=== PATIENT | female | born 1950 | race American Indian/Alaskan Native ===

== ENCOUNTER 2017-03-04 06:59 | Day surgery (SDC) | payer MEDICARE ==
[2017-03-04 07:42] LABS: Hematocrit 37.6 % (30.3-42.9); Hemoglobin 12.2 gm/dl (10.1-14.3); Mean Corpuscular HGB Conc 32 % (30-34); Mean Corpuscular Hemoglobin 30 pg (28-32); Mean Corpuscular Volume 94 fl (79-97); Platelet Count 260 K/mm3 (140-440); Red Cell Distribution Width 13.9 % (13.2-15.2); White Blood Count 11.9 K/mm3 (4.5-11.0)
[2017-03-04 07:55] LABS: INR 1.02 (0.87-1.13)
[2017-03-04 08:02] LABS: Anion Gap 18 mmol/L; Blood Urea Nitrogen 18 mg/dL (7-17); Calcium 11.6 mg/dL (8.4-10.2); Carbon Dioxide 23 mmol/L (22-30); Chloride 99.7 mmol/L (98-107); Glucose 109 mg/dL (65-100); Potassium 4.1 mmol/L (3.6-5.0); Sodium 137 mmol/L (137-145)
[2017-03-04] MEDS ORDERED: HEPARIN/NS 5000 UNIT/500ML(CATH LAB) 1,000 ML IR ONE (08:13)
[2017-03-04] MEDS ORDERED: NITROGLYCERIN SYRINGE 3 ML ONE (08:14)
[2017-03-04] MEDS ORDERED: CALAN ONE (08:14)
[2017-03-04] MEDS ORDERED: XYLOCAINE 2% INFILTRATI ONE (08:14)
[2017-03-04] MEDS ORDERED: HEPARIN 10,000 UNITS/10 ML ONE (08:14)
[2017-03-04] MEDS ORDERED: SUBLIMAZE ONE (08:15)
[2017-03-04] MEDS: VERSED ONE ×2 (09:00→09:03)
[2017-03-04 09:49] LABS: Basophils % (Manual) 0 % (0.0-1.8); Blastocytes % (Manual) 0 %; Eosinophils % (Manual) 0 % (0.0-4.3)
[2017-03-04 09:50] LABS: Diff Status Complete; RBC Morphology Normal
[2017-03-04] MEDS ORDERED: LEXISCAN IV ONE (09:54)
[2017-03-04] MEDS ORDERED: NACL 0.9% 500 ML 500 ML IV SCH (10:00)
--- NOTE | 2017-03-04 10:20 | Cardiac Catherization Report ---
REFERRING PHYSICIAN: Jose Foster MD INDICATION FOR PROCEDURE: The patient is a pleasant 66-year-old -[place] female with multiple risk factors, recurrent chest pain, referred here for left heart catheterization. Risks, benefits, and potential alternatives explained at length prior to obtaining informed consent. PROCEDURE IN DETAIL: The patient was brought to catheterization lab in a postabsorptive state, prepped and draped in sterile fashion. Francisco J's test in right hand was normal. A 2 mL of 2% lidocaine anesthetize to the right wrist. A standard 6-Korean hydrophilic sheath used to cannulate the right radial artery via modified Seldinger technique. All exchanges performed to exchange a J-tip guidewire. JL3.5 catheter used to engage left main. No dampening or ventricularization. Cineangiography performed in all projections. JR4 catheter used to cross the aortic valve under fluoroscopy guidance. Left ventriculography performed in 30 AMBRIZ and 30 FAROESE projections via hand injections, catheter flushed. Manual pullback performed with continuous pressure monitoring. Catheter used to engage the right coronary. No dampening or ventricularization. Cineangiography performed in multiple projections. Next, catheter removed from the body of wire, sheath removed. Manual pressure used to achieve hemostasis. DATA: Aortic pressure is 135/60, LV pressure is 130, LVEDP of 22 mmHg. Left ventriculography revealed normal systolic performance with estimated ejection fraction of 55%-60%. No evidence of aortic stenosis. Normal LVEDP. CORONARY ANATOMY: This is a right dominant system. Left main is a moderate sized vessel with no significant disease, bifurcates left anterior descending and left circumflex. Left circumflex is a moderate sized vessel, courses AV groove. No significant disease. Left main without disease. LAD is a moderate sized vessel, courses anterior intergroove, wraps around the apex, tortuous. There is a moderate length segment of intramyocardial bridging in the mid LAD, no evidence of diastolic collapse, mild. No significant coronary artery disease noted. Right coronary is a moderate sized vessel, courses AV groove, distally bifurcates in the posterior and posterolateral branch. No discrete stenoses. RIGHT DOMINANT SYSTEM CONCLUSIONS: 1. No angiographic evidence of significant epicardial coronary artery disease in this right dominant system. 2. Mild mid LAD bridge without evidence of diastolic collapse. 3. Normal left ventricular systolic performance, estimated ejection fraction of 55%-60%. 4. No evidence of aortic stenosis. At this point, recommend medical management. The patient recurrent chest pain, we will also check V/Q scan. However, follow up with Dr. Foster. Results of procedure explained at length to the patient and family. All questions and concerns were addressed. Primary and secondary prevention measures were discussed. JOB# [id number] SBM/NTS
--- NOTE | 2017-03-04 10:51 | XRay Report ---
CHEST ONE VIEW INDICATION: Chest pain. History of asthma. COMPARISON: 11/08/2015. FINDINGS: Portable, single, frontal chest radiograph demonstrates normal cardiomediastinal silhouette. Clear lungs. Mild bony degenerative changes. Extrinsic EKG leads. CONCLUSION: No acute disease in the chest. Thank you for the opportunity to participate in this patient's care.
[2017-03-04 12:57] VITALS: BP 109/63
--- NOTE | 2017-03-04 13:00 | Nuclear Medicine Report ---
LUNG SCAN, VENTILATION AND PERFUSION: History: Chest pain. Findings: Inhalation of Xenon gas demonstrates a normal distribution of the activity throughout both lungs. The wash out phases show no focal retention of activity. After injection of Technetium 99m macroaggregated albumin gamma camera imaging of the lungs in multiple projections demonstrates normal pulmonary contours with a homogeneous distribution of activity. No focal areas of perfusion deficiency are identified. IMPRESSION: Normal study.
--- NOTE | 2017-03-04 15:19 | Short Stay Summary ---
Short Stay Documentation Date of service: 03/04/17 - History H&P: obtained from office - Allergies and Medications Current Medications: Allergies No Known Allergies Allergy (Verified 11/09/15 01:46) Home Medications Medication Instructions Recorded Confirmed Last Taken Type Albuterol Sulfate [Ventolin HFA] 2 puff IH Q4H PRN 11/04/15 03/04/17 03/04/17 07 :38 History Fluticasone [Flonase] 1 spray NS QDAY 11/04/15 03/04/17 03/04/17 07:40 History 324mg po Aspirin [Aspirin BABY CHEW TAB] 81 mg PO QDAY tab.chew 11/09/15 03/04/17 07:38 Rx Fexofenadine/Pseudoephedrine 1 each PO QDAY 11/09/15 03/04/17 11/09/15 History [Joyce-D 12 Hour Tablet] Ibuprofen [Motrin 200 MG tab] 200 mg PO Q6H PRN 11/09/15 12/29/15 11/09/15 History Naproxen 375 mg PO Q12H PRN 12/29/15 12/29/15 Unknown History traMADol 50 mg PO Q6H PRN 12/29/15 12/29/15 03/03/17 History amLODIPine [Norvasc] 5 mg PO DAILY 03/04/17 03/04/17 03/03/17 History - Brief post op/procedure progress note Date of procedure: 03/04/17 Pre-op diagnosis: chest pain Post-op diagnosis: same Procedure: LHC - see cath report Anesthesia: local Estimated blood loss: none Pathology: none Condition: stable - Disposition Condition at discharge: Good Disposition: DC-01 TO HOME OR SELFCARE - Discharge Diagnoses (1) Chest pain Status: Chronic Qualifiers: Chest pain type: C Ischemic chest pain type: I Short Stay Discharge Plan Activity: advance as tolerated Wound: open to air, keep clean and dry Additional Instructions: Follow up with Dr. Tolentino in 1-2 weeks. Call to make appt at [phone]. Follow up with: OSCAR RIOS MD [Primary Care Provider] - 7 Days JAMILAH TOLENTINO MD [Staff Physician] - 7 Days Forms: CardCath PCI D/C Instructions
== END 2017-03-04 13:45 | disposition home or self-care (01) ==
LOC: OPU 06:59
PROVIDERS: ATTEND Internal Medicine
DX: R07.89 Other chest pain (principal); J45.909 Unspecified asthma, uncomplicated; E66.9 Obesity, unspecified; Z68.27 Body mass index [BMI] 27.0-27.9, adult; Z90.710 Acquired absence of both cervix and uterus; Z79.899 Other long term (current) drug therapy; Z98.890 Other specified postprocedural states; Z84.1 Family history of disorders of kidney and ureter; Z82.49 Family history of ischemic heart disease and other diseases of the circulatory system; Z79.82 Long term (current) use of aspirin
CPT/HCPCS: 36415; 71010; 78582; 80048; 85007; 85025; 85610; 85730; 93005; 93010; 93458; A9540; A9558; C1894; J1644; J2250; J3010; J7040; Q9967

== ENCOUNTER 2017-04-15 19:38 | Emergency (ER) | payer MEDICARE ==
[2017-04-15] MEDS ORDERED: TYLENOL ONE (20:29)
[2017-04-15] MEDS ORDERED: TYLENOL PO ONE (20:32)
--- NOTE | 2017-04-16 02:59 | Emergency Department Report ---
HPI - General Chief Complaint: Pain General Time Seen by Provider: 04/16/17 02:39 - HPI HPI: Pt reports that she's been having pain for approximately 2 weeks. She says she is having pain to her upper back and her shoulder and also to both sides of her neck. She said she did not fall or any injury to the side she says she usually takes tramadol but she is out of her tramadol. She says she hasn't 0.0 with her primary care physician but is not for another couple weeks. She says she has chronic arthritis all over. Patient with history of arthritis, asthma, or heart attack [place], hypertension and sinusitis, chronic neck and back pain. Surgical history for hysterectomy, right knee surgery, gallbladder surgery and fibroids removed. Her pain is 3/10 and it's worst when she moves around. Says her pain is better when she takes Ultram. She describes her pain as a can. She denies any numbness or tingling to her extremities. Denies any chest pain or shortness of breath. ED Past Medical Hx - Past Medical History Previous Medical History?: Yes Hx Hypertension: Yes Hx Heart Attack/AMI: No Hx Arthritis: Yes Hx Asthma: Yes Additional medical history: SINUS. Chronic back/neck pain - Surgical History Past Surgical History?: Yes Hx Pacemaker: No Additional Surgical History: HYSTERERCTOMY, RIGHT KNEE SURGERY, GALL STONE REMOVED, FIRBROIDS REMOVED. - Family History Family history: hypertension - Social History Smoking Status: Never Smoker Substance Use Type: None Other Social History: single - Medications Home Medications: Home Medications Medication Instructions Recorded Confirmed Last Taken Type Albuterol Sulfate [Ventolin HFA] 2 puff IH Q4H PRN 11/04/15 03/04/17 03/04/17 07 :38 History Fluticasone [Flonase] 1 spray NS QDAY 11/04/15 03/04/17 03/04/17 07:40 History 324mg po Aspirin [Aspirin BABY CHEW TAB] 81 mg PO QDAY tab.chew 11/09/15 03/04/17 07:38 Rx Fexofenadine/Pseudoephedrine 1 each PO QDAY 11/09/15 03/04/17 11/09/15 History [Joyce-D 12 Hour Tablet] amLODIPine [Norvasc] 5 mg PO DAILY 03/04/17 03/04/17 03/03/17 History Acetaminophen/Codeine [Tylenol 1 tab PO Q6H PRN #6 tab 04/16/17 Unknown Rx /Codeine # 3 tab] traMADol [Ultram] 50 mg PO Q6HR PRN #12 tablet 04/16/17 Unknown Rx ED Review of Systems ROS: Stated complaint: BACK OF HEAD/BACK/NECK PAINS Other details as noted in HPI Comment: All other systems reviewed and negative Constitutional: denies: chills, fever Eyes: denies: eye pain, vision change ENT: denies: throat pain, congestion Respiratory: denies: cough, orthopnea, shortness of breath, SOB with exertion, SOB at rest, stridor, wheezing Cardiovascular: denies: chest pain, palpitations, edema, syncope Gastrointestinal: denies: abdominal pain, nausea, vomiting, constipation Genitourinary: denies: urgency, dysuria, frequency, hematuria, discharge Musculoskeletal: back pain, arthralgia, myalgia. denies: joint swelling Skin: denies: rash Neurological: denies: headache, weakness, numbness, paresthesias, confusion, abnormal gait, vertigo Physical Exam - Physical Exam Vital Signs: Vital Signs 04/15/17 20:25 Temperature 98.1 F Pulse Rate 103 H Respiratory 16 Rate Blood Pressure 125/74 [Right] O2 Sat by Pulse 98 Oximetry Vital Signs 04/15/17 04/16/17 20:25 03:53 Temperature 98.1 F Pulse Rate 103 H 82 Respiratory 16 Rate Blood Pressure 125/74 [Right] O2 Sat by Pulse 98 Oximetry General: This is a 67-year-old female well-nourished well-developed in no acute distress Physical Exam: Head: Normocephalic, atraumatic. No abrasions, laceration or contusion Neck: Supple, no adenopathy. Full range of motion. No C-spine tenderness. No muscular tenderness Mouth: Moist, no pharyngeal exudate or erythema. Uvula is midline and oral airways patent. Tongue is normal. No trismus. No peritonsillar abscess. CV:S1, S2 regular rate and rhythm Lungs: Clear to auscultate bilaterally Normal work of breathing and no use of accessory muscles. Abdomen: Nontender the palpation in all quadrants, no guarding or rebound tenderness. No CVA tenderness and normal bowel sounds in all quadrants. Extremity: No clubbing, cyanosis or edema. +2 pulses in all extremities. No neurovascular compromise. Capillary refill is less than 3 seconds. Good color , sensation, movement and temperature in all extremities. Able to ambulate without any difficulties. MSK: Full Range of motion to all extremities, no joint crepitus, deformity, erythema, swelling. No signs of tendon or ligament injury. +5/5 strength in all extremities Skin: Clean dry and intact, no rash or lesions. PSYCH: Normal mood and behavior. Neurological: GCS of 15, speech is clear and fluid, alert and oriented 3. Normal gait, negative Romberg and negative pronator drift. No motor or sensory deficit. No focal neurological deficit. Back: No vertebral tenderness, no paraspinal tenderness, no saddle anesthesia,. Patient able to relate without any difficulties. ED Course Vital Signs 04/15/17 20:25 Temperature 98.1 F Pulse Rate 103 H Respiratory 16 Rate Blood Pressure 125/74 [Right] O2 Sat by Pulse 98 Oximetry Vital Signs 04/15/17 04/16/17 20:25 03:53 Temperature 98.1 F Pulse Rate 103 H 82 Respiratory 16 Rate Blood Pressure 125/74 [Right] O2 Sat by Pulse 98 Oximetry - Reevaluation(s) Reevaluation #1: 04/16/17 04:01 Patient stable throughout ED course. She received Tylenol 650 mg in triage area 04/16/17 04:01 ED Medical Decision Making - Medical Decision Making MDM: Assessment/plan ED course: Patient here reports that she has neck, upper back and shoulder pain that has been ongoing and reports that she has chronic arthritis and she gets pain from time to time. She said her doctor wrote for Ultram for her and she is out of her Ultram. She brought the empty bottle of Ultram and asked if she can get a refill and get something stronger because the Ultram doesn't take her pain away. Patient has multiple co-morbidities and on medication. She does see a primary care on a regular basis and says she has an appointment coming up soon. I discussed the patient that I'll give her a refill for Ultram and I'll give her 6 Tylenol 3 but she will need to to manage her chronic pain and other medical problem. She voiced understanding and discharged home in stable condition. Diagnostic/labs:No Need for diagnostics or lab tests. Diagnosis: Arthralgia multiple sites, chronic pain, upper back pain. Medication refill Medication: Patient given Tylenol 650 mg at emergency room for pain which alleviated her pain down to the toilet at 10. He was given prescription for Tylenol 3 and Ultram. Discussed the patient that she needs to follow up with her primary care physician to call and schedule an appointment. She does have an appointment for April 28 I told her to call and see if she can get an earlier appointment. Zack agrees and discharged home in stable condition. Critical care attestation.: If time is entered above; I have spent that time in minutes in the direct care of this critically ill patient, excluding procedure time. ED Disposition Clinical Impression: Arthralgia of multiple sites, bilateral, Encounter for medication refill, Upper back pain Chronic pain Qualifiers: Chronic pain type: chronic pain syndrome Qualified Code(s): G89.4 - Chronic pain syndrome Disposition: - TO HOME OR SELFCARE Is pt being admited?: No Does the pt Need Aspirin: No Condition: Stable Instructions: Back Pain (ED), Arthralgia (ED) Additional Instructions: Please follow-up with your primary care physician call tomorrow to schedule an early appointment Donot take Ultram or Tylenol No. 3 while driving or operating heavy machinery as this medication can cause drowsiness Prescriptions: Acetaminophen/Codeine [Tylenol /Codeine # 3 tab] 1 tab PO Q6H PRN #6 tab PRN Reason: Pain traMADol [Ultram] 50 mg PO Q6HR PRN #12 tablet PRN Reason: Pain Referrals: OSCAR RIOS MD [Primary Care Provider] - 04/17/17
[2017-04-16] MEDS ORDERED: MOTRIN ONE (04:20)
[2017-04-16] MEDS ORDERED: MOTRIN PO ONE (04:27)
[2017-04-16 04:30] VITALS: BP 146/88
== END 2017-04-16 04:29 | disposition home or self-care (01) ==
LOC: ED 19:38
DX: M54.2 Cervicalgia (principal); M54.6 Pain in thoracic spine; M25.511 Pain in right shoulder; M25.512 Pain in left shoulder; G89.4 Chronic pain syndrome; I10 Essential (primary) hypertension; J45.909 Unspecified asthma, uncomplicated; M19.90 Unspecified osteoarthritis, unspecified site; Z90.710 Acquired absence of both cervix and uterus; Z79.82 Long term (current) use of aspirin
CPT/HCPCS: 99282

== ENCOUNTER 2019-04-02 18:01 | Inpatient (IN) | payer MEDICARE ==
--- NOTE | 2019-04-02 18:16 | Event Note ---
ED Screening Note Date of service: 04/02/19 Time: 18:13 ED Screening Note: 69 y/o female comes in for chest pain and sob and leg pain times couple of weeks. Changes on her EKG This initial assessment/diagnostic orders/clinical plan/treatment(s) is/are subject to change based on patients health status, clinical progression and re- assessment by fellow clinical providers in the ED. Further treatment and workup at subsequent clinical providers discretion. Patient/guardian urged not to elope from the ED as their condition may be serious if not clinically assessed and managed. Initial orders include:
--- NOTE | 2019-04-02 19:04 | Emergency Department Report ---
ED Chest Pain HPI - General Chief Complaint: Weakness Stated Complaint: SOB/CHEST PAIN Time Seen by Provider: 04/02/19 18:59 Source: patient Mode of arrival: Ambulatory Limitations: No Limitations - History of Present Illness Initial Comments: Patient is a 69-year-old female presents to emergency room with complaints of shortness of breath, leg weakness, dizziness and chest pain 3 days. Patient states her chest pain is a 5 out of 10. Patient states her symptoms are better with rest and worse with exertion. Patient denies blurry vision. Patient denies headache. Patient states the chest pain is in her substernal region. Patient also complaining of weight loss and decreased appetite MD Complaint: chest pain -: Sudden Onset: during rest Pain Location: substernal, left chest Pain Radiation: none Severity: moderate Severity scale (0 -10): 5 Quality: sharp Consistency: constant Improves With: rest Worsens With: exertion re: dyspnea. denies: nausea, vomting, diaphoresis, sense of impending doom Other Symptoms: denies: cough, fever, syncope, rash, acid taste in mouth, leg swelling, palpitations, burping Treatments Prior to Arrival: none Aspirin use within the Past 7 Days: (1) Yes - Related Data On Oral Contraceptives: No Home Medications Medication Instructions Recorded Confirmed Last Taken Albuterol Sulfate [Ventolin HFA] 2 puff IH Q4H PRN 11/04/15 03/04/17 03/04/17 07:38 Fluticasone [Flonase] 1 spray NS QDAY 11/04/15 03/04/17 03/04/17 07:40 324mg po Fexofenadine/Pseudoephedrine 1 each PO QDAY 11/09/15 03/04/17 11/09/15 [Joyce-D 12 Hour Tablet] amLODIPine [Norvasc] 5 mg PO DAILY 03/04/17 03/04/17 03/03/17 Previous Rx's Medication Instructions Recorded Last Taken Type Aspirin [Aspirin BABY CHEW TAB] 81 mg PO QDAY tab.chew 11/09/15 03/04/17 07:38 Rx Acetaminophen/Codeine [Tylenol 1 tab PO Q6H PRN #6 tab 04/16/17 Unknown Rx /Codeine # 3 tab] traMADol [Ultram] 50 mg PO Q6HR PRN #12 tablet 04/16/17 Unknown Rx Allergies Allergy/AdvReac Type Severity Reaction Status Date / Time No Known Allergies Allergy Verified 11/09/15 01:46 Heart Score - HEART Score History: Slightly suspicious EKG: Non-specific Age: > 65 Risk factors: No known risk factors Troponin: < normal limit HEART Score: 3 ED Review of Systems ROS: Stated complaint: SOB/CHEST PAIN Other details as noted in HPI Constitutional: weakness. denies: chills, fever Eyes: denies: eye pain, eye discharge, vision change ENT: denies: ear pain, throat pain Respiratory: shortness of breath. denies: cough, wheezing Cardiovascular: chest pain. denies: palpitations Endocrine: no symptoms reported Gastrointestinal: denies: abdominal pain, nausea, diarrhea Genitourinary: denies: urgency, dysuria, discharge Musculoskeletal: denies: back pain, joint swelling, arthralgia Skin: denies: rash, lesions Neurological: weakness, vertigo. denies: headache, paresthesias Psychiatric: denies: anxiety, depression Hematological/Lymphatic: denies: easy bleeding, easy bruising ED Past Medical Hx - Past Medical History Previous Medical History?: Yes Hx Hypertension: Yes Hx Heart Attack/AMI: No Hx Arthritis: Yes Hx Asthma: Yes Additional medical history: SINUS. Chronic back/neck pain - Surgical History Past Surgical History?: Yes Hx Pacemaker: No Additional Surgical History: HYSTERERCTOMY, RIGHT KNEE SURGERY, GALL STONE REMOVED, FIRBROIDS REMOVED. - Family History Family history: no significant - Social History Smoking Status: Never Smoker Substance Use Type: None - Medications Home Medications: Home Medications Medication Instructions Recorded Confirmed Last Taken Type Albuterol Sulfate [Ventolin HFA] 2 puff IH Q4H PRN 11/04/15 03/04/17 03/04/17 07:38 History Fluticasone [Flonase] 1 spray NS QDAY 11/04/15 03/04/17 03/04/17 07:40 History 324mg po Aspirin [Aspirin BABY CHEW TAB] 81 mg PO QDAY tab.chew 11/09/15 03/04/17 03/04/17 07:38 Rx Fexofenadine/Pseudoephedrine 1 each PO QDAY 11/09/15 03/04/17 11/09/15 History [Joyce-D 12 Hour Tablet] amLODIPine [Norvasc] 5 mg PO DAILY 03/04/17 03/04/17 03/03/17 History Acetaminophen/Codeine [Tylenol 1 tab PO Q6H PRN #6 tab 04/16/17 Unknown Rx /Codeine # 3 tab] traMADol [Ultram] 50 mg PO Q6HR PRN #12 tablet 04/16/17 Unknown Rx ED Physical Exam - General Limitations: No Limitations General appearance: alert, in no apparent distress - Head Head exam: Present: atraumatic, normocephalic - Eye Eye exam: Present: normal appearance - ENT ENT exam: Present: mucous membranes moist - Neck Neck exam: Present: normal inspection - Respiratory Respiratory exam: Present: normal lung sounds bilaterally. Absent: respiratory distress, wheezes, rales - Cardiovascular Cardiovascular Exam: Present: regular rate, normal rhythm. Absent: systolic mu rmur, diastolic murmur, rubs, gallop - GI/Abdominal GI/Abdominal exam: Present: soft, normal bowel sounds. Absent: distended, tenderness, guarding - Rectal Rectal exam: Present: deferred - Extremities Exam Extremities exam: Present: normal inspection - Back Exam Back exam: Present: normal inspection - Neurological Exam Neurological exam: Present: alert, oriented X3 - Psychiatric Psychiatric exam: Present: normal affect, normal mood - Skin Skin exam: Present: warm, dry, intact, normal color. Absent: rash ED Course Vital Signs 04/02/19 04/02/19 04/02/19 18:13 18:54 19:01 Temperature 97.5 F L Pulse Rate 109 H 107 H 106 H Respiratory 22 25 H 15 Rate Blood Pressure 98/70 109/74 O2 Sat by Pulse 100 Oximetry 04/02/19 04/02/19 04/02/19 19:15 19:16 19:30 Temperature Pulse Rate 107 H Respiratory 20 18 Rate Blood Pressure 97/71 102/69 O2 Sat by Pulse Oximetry 04/02/19 04/02/19 04/02/19 19:46 20:16 20:30 Temperature Pulse Rate Respiratory Rate Blood Pressure 120/81 117/83 117/89 O2 Sat by Pulse Oximetry 04/02/19 04/02/19 20:45 21:00 Temperature Pulse Rate Respiratory Rate Blood Pressure 110/82 129/72 O2 Sat by Pulse Oximetry - Reevaluation(s) Reevaluation #1: Discussed all results with patient. Patient will be admitted to the hospitalist service. Patient agrees to plan of care. 04/02/19 20:26 - Consultations Consultation #1: Hospitalist consulted for admission. Hospitalist to admit patient. Hospitalist to assume care patient. 04/02/19 20:26 Consultation #2: Hematology page 04/02/19 20:28 Dr. Barrera recommends a peripheral smear by pathologist and LDH and uric acid and phosphorus and magnesium level 04/02/19 20:40 YOVANNY score - Yovanny Score Age > 65: (1) Yes Aspirin use within the Past 7 Days: (1) Yes 3 or more CAD Risk Factors: (0) No 2 or more Angina events in past 24 hrs: (1) Yes Known CAD with more than 50% Stenosis: (0) No Elevated Cardiac Markers: (0) No ST Deviation Greater than 0.5mm: (0) No YOVANNY Score: 3 ED Medical Decision Making - Lab Data Result diagrams: 04/02/19 19:03 04/02/19 19:03 - EKG Data -: EKG Interpreted by [facility] EKG shows normal: sinus rhythm, axis, intervals, QRS complexes, ST-T waves Rate: tachycardia - Radiology Data Radiology results: report reviewed, image reviewed CHEST 2 VIEWS 1642 INDICATION / CLINICAL INFORMATION: chest pain, sob. COMPARISON: None available. FINDINGS: SUPPORT DEVICES: None. HEART / MEDIASTINUM: No significant abnormality. LUNGS / PLEURA: No significant pulmonary or pleural abnormality. No pneumothorax . ADDITIONAL FINDINGS: No significant additional findings. IMPRESSION: No significant acute abnormality CT head without contrast INDICATION : Headache with dizziness. TECHNIQUE: Axial imaging performed from the skull apex through the skull base without the use of contrast. All CT examinations performed at this facility utilize dose modulation, iterative reconstruction or weight-based dosing, when appropriate, to reduce radiation dose to as low as reasonably achievable. COMPARISON: None FINDINGS: No acute intracranial hemorrhage or parenchymal abnormality. Ventricles are normal in size and appear symmetric. Soft tissues including the orbits appear normal. No acute osseous abnormality. Sinuses and mastoid air cells are clear. IMPRESSION: No acute abnormality. - Medical Decision Making Patient is a 69-year-old female presents to emergency room with chest pain, shortness of breath, dizziness and weakness. Patient found to have acute renal failure and leukemia. Patient also complains of weight loss loss of appetite. Patient admitted to the hospital service. Patient's head CT negative. Patient's chest x-ray negative. Hematology consult as well. - Differential Diagnosis chest pain. Shortness of breath. Dizziness. Weakness. ACS Critical Care Time: Yes Critical care attestation.: If time is entered above; I have spent that time in minutes in the direct care of this critically ill patient, excluding procedure time. Critical Care Time: 45 minutes ED Disposition Clinical Impression: SOB (shortness of breath), Weakness, Dizziness Chest pain Qualifiers: Chest pain type: unspecified Qualified Code(s): R07.9 - Chest pain, unspecified Elevated white blood cell count, unspecified Qualifiers: Leukocytosis type: unspecified Qualified Code(s): D72.829 - Elevated white blood cell count, unspecified Renal failure Qualifiers: Renal failure chronicity: acute Acute renal failure type: unspecified Qualified Code(s): N17.9 - Acute kidney failure, unspecified Leukemia Qualifiers: Leukemia type: unspecified Leukemia Active/Remission status: without remission Qualified Code(s): C95.90 - Leukemia, unspecified not having achieved remission Disposition: OP ADMIT IP TO THIS HOSP Is pt being admited?: Yes Does the pt Need Aspirin: No Condition: Critical Time of Disposition: 20:41
--- NOTE | 2019-04-02 19:11 | XRay Report ---
CHEST 2 VIEWS 1642 INDICATION / CLINICAL INFORMATION: chest pain, sob. COMPARISON: None available. FINDINGS: SUPPORT DEVICES: None. HEART / MEDIASTINUM: No significant abnormality. LUNGS / PLEURA: No significant pulmonary or pleural abnormality. No pneumothorax. ADDITIONAL FINDINGS: No significant additional findings. IMPRESSION: No significant acute abnormality Signer Name: Yeyo Pandey MD Signed: 04/02/2019 7:07 PM Workstation Name: [id number]
[2019-04-02 19:17] LABS: Hematocrit 37.4 % (30.3-42.9); Mean Corpuscular HGB Conc 32 % (30-34); Mean Corpuscular Volume 99 fl (79-97); Platelet Count 229 K/mm3 (140-440); Red Blood Count 3.79 M/mm3 (3.65-5.03); Red Cell Distribution Width 15.3 % (13.2-15.2)
[2019-04-02 19:47] LABS: Alanine Aminotransferase 10 units/L (7-56); Albumin 5.1 g/dL (3.9-5); BUN/Creatinine Ratio 21; Blood Urea Nitrogen 62 mg/dL (7-17); Calcium 11.7 mg/dL (8.4-10.2); Hemolysis Index 23
--- NOTE | 2019-04-02 20:26 | Cat Scan Report ---
CT head without contrast INDICATION : Headache with dizziness. TECHNIQUE: Axial imaging performed from the skull apex through the skull base without the use of con trast. All CT examinations performed at this facility utilize dose modulation, iterative reconstruct ion or weight-based dosing, when appropriate, to reduce radiation dose to as low as reasonably achiev able. COMPARISON: None FINDINGS: No acute intracranial hemorrhage or parenchymal abnormality. Ventricles are normal in si ze and appear symmetric. Soft tissues including the orbits appear normal. No acute osseous abnorm ality. Sinuses and mastoid air cells are clear. IMPRESSION: No acute abnormality. Signer Name: Gus Boudreaux MD Signed: 04/02/2019 8:21 PM Workstation Name: [id number]
--- NOTE | 2019-04-02 20:36 | History and Physical Report ---
History of Present Illness Chief complaint: Im tired, and i dont feel good History of present illness: 69 YO Female with HTN, Malnutrition, OA, Asthma, Lumbar Pain presents to ED for evaluation. PT states that she has experienced shortness of breath, generalized weakness, and chest discomfort over the past 2 weeks, with worsening symptoms over the past 3 days. Pt acknowledges decreased oral intake, early satiety, 25 lbs unintentional weight loss, night sweats, chest discomfort, and decreased exercise tolerance. Pt transported to [facility] via private vehicle. Pt seen and evaluated in ED and found to have symptoms consistent with CLL, as well as ARF, Acidosis, Severe Malnutrution, and Hyponatremia. Hematology consulted in ED. Nephrology consulted in ED. Pt admitted to [facility] unit and initiated on IVF resuscitation therapy. Prior admission on 11/09/15 reviewed. All listed medication reconciled at time of admission. PCP: Dr. Tyron Sung Past History Past Medical History: arthritis, hypertension, other (Malnutrition, Asthma) Past Surgical History: cholecystectomy, thyroidectomy, hysterectomy Social history: . denies: smoking, alcohol abuse, prescription drug abuse Family history: hypertension Medications and Allergies Allergies Allergy/AdvReac Type Severity Reaction Status Date / Time No Known Allergies Allergy Verified 11/09/15 01:46 Home Medications Medication Instructions Recorded Confirmed Last Taken Type Albuterol Sulfate [Ventolin HFA] 2 puff IH Q4H PRN 11/04/15 04/03/19 04/02/19 09:00 History 2puffs Fluticasone [Flonase] 1 spray NS QDAY 11/04/15 04/03/19 04/02/19 10:00 History 1 spray Aspirin [Aspirin BABY CHEW TAB] 81 mg PO QDAY tab.chew 11/09/15 04/03/19 03/31/19 09:00 Rx 81mg Fexofenadine/Pseudoephedrine 1 each PO QDAY 11/09/15 04/03/19 03/31/19 09:00 History [Joyce-D 12 Hour Tablet] 1 amLODIPine [Norvasc] 5 mg PO DAILY 03/04/17 04/03/19 03/31/19 09:00 History 5mg Acetaminophen/Codeine [Tylenol 1 tab PO Q6H PRN #6 tab 04/16/17 04/03/19 03/21/19 09:00 Rx /Codeine # 3 tab] 1 tab traMADol [Ultram] 50 mg PO Q6HR PRN #12 tablet 04/16/17 04/03/19 03/31/19 18:00 Rx 50mg Review of Systems Constitutional: weight loss, night sweats, no weight gain Ears, nose, mouth and throat: no ear pain, no ear discharge, no tinnitis, no decreased hearing, no nose pain, no nasal congestion Breasts: no change in shape, no swelling, no mass Cardiovascular: shortness of breath, dyspnea on exertion, decreased exercise tolerance, no chest pain Respiratory: no cough, no cough with sputum, no excessive sputum, no hemoptysis Gastrointestinal: loss of appetite, early satiety, no nausea, no vomiting, no diarrhea, no change in bowel habits Genitourinary Female: no pelvic pain, no flank pain, no menorrhagia, no dysuria, no urinary frequency Rectal: no pain, no incontinence, no bleeding Musculoskeletal: no neck stiffness, no neck pain, no shooting arm pain, no arm numbness/tingling, no low back pain Integumentary: no rash, no pruritis, no sores, no wounds, no jaundice Neurological: no head injury, no weakness, no parathesias, no tingling, no seizures, no syncope Psychiatric: no anxiety, no memory loss, no change in sleep habits, no sleep disturbances, no insomnia, no change in libido Endocrine: no cold intolerance, no heat intolerance, no polyphagia, no excessive thirst, no polydipsia, no polyuria Hematologic/Lymphatic: no easy bruising, no easy bleeding Allergic/Immunologic: no urticaria, no allergic rhinitis, no wheezing Exam - Constitutional Vitals: Temp Pulse Resp BP Pulse Ox 97.5 F L 107 H 18 97/71 100 04/02/19 18:13 04/02/19 19:15 04/02/19 19:16 04/02/19 19:15 04/02/19 18:13 General appearance: Present: mild distress, cachectic - EENT Eyes: Present: PERRL ENT: hearing intact, clear oral mucosa - Neck Neck: Present: supple, normal ROM - Respiratory Respiratory effort: normal Respiratory: bilateral: CTA - Cardiovascular Heart Sounds: Present: S1 & S2. Absent: rub, click - Extremities Extremities: pulses symmetrical, No edema Peripheral Pulses: within normal limits - Abdominal General gastrointestinal: Present: soft, non-tender, non-distended, normal bowel sounds Female genitourinary: Present: normal - Integumentary Integumentary: Present: clear, warm, dry - Musculoskeletal Musculoskeletal: generalized weakness - Psychiatric Psychiatric: appropriate mood/affect, intact judgment & insight - Neurologic Neurologic: CNII-XII intact, moves all extremities Results - Labs CBC & Chem 7: 04/02/19 19:03 04/02/19 19:03 Labs: Abnormal lab results 04/02/19 04/02/19 Range/Units 19:03 19:03 WBC 66.4 H* (4.5-11.0) K/mm3 MCV 99 H (79-97) fl RDW 15.3 H (13.2-15.2) % Sodium 132 L (137-145) mmol/L Chloride 91.9 L (98-107) mmol/L Carbon Dioxide 19 L (22-30) mmol/L BUN 62 H (7-17) mg/dL Creatinine 3.0 H (0.7-1.2) mg/dL Glucose 141 H (65-100) mg/dL Calcium 11.7 H (8.4-10.2) mg/dL Total Protein 8.6 H (6.3-8.2) g/dL Albumin 5.1 H (3.9-5) g/dL Assessment and Plan - Patient Problems (1) ARF (acute renal failure) with tubular necrosis Current Visit: Yes Status: Acute Plan to address problem: IVF resuscitation therapy, urine electrolytes, monitor uop q shift, Nephrology consulted in ED, renal ultrasound, monitor serum creatnine. (2) CLL (chronic lymphocytic leukemia) Current Visit: Yes Status: Acute Plan to address problem: Hematology consulted by ED, Dr. Castañeda is available by telephone if questions regarding patient stats, IVF resuscitation therapy, CT Chess to evaluate for adenopathy, LDH, Phosphorous level, magnesium, Peripheral smear sent to pathology for evaluation, (3) Severe malnutrition Current Visit: Yes Status: Acute Plan to address problem: Encourage increased protein intake, dietary supplementation, diet as tolerated (4) Acidosis Current Visit: Yes Status: Acute Plan to address problem: IVF resuscitation therapy, repeat bmp in AM. (5) Hyponatremia syndrome Current Visit: Yes Status: Acute Plan to address problem: IVF resuscitation therapy, repeat bmp (6) DVT prophylaxis Current Visit: Yes Status: Acute Plan to address problem: SCD to BLE while in bed. Pt ambulatory
[2019-04-02] MEDS ORDERED: TYLENOL PO PRN (20:40)
[2019-04-02] MEDS ORDERED: SODIUM CHLORIDE FLUSH SYRINGE 10 ML IV PRN (20:40)
[2019-04-02] MEDS ORDERED: ZOFRAN IV PRN (20:40)
[2019-04-02] MEDS ORDERED: PROVENTIL IH PRN (20:40)
[2019-04-02] MEDS ORDERED: PROAIR IH PRN (20:46)
[2019-04-02] MEDS ORDERED: NACL 0.45% 1000 ML 1,000 ML IV SCH (21:00)
[2019-04-02 21:35] LABS: Uric Acid 17.4 mg/dL (3.5-7.6)
--- NOTE | 2019-04-02 21:48 | Cat Scan Report ---
CT CHEST WITHOUT CONTRAST INDICATION / CLINICAL INFORMATION: Dyspnea with leukemia. TECHNIQUE: Axial CT images were obtained through the chest without contrast. All CT scans at this location are p erformed using CT dose reduction for ALARA by means of automated exposure control. COMPARISON: None available. FINDINGS: HEART: No significant abnormality. THORACIC AORTA: No significant abnormality. MEDIASTINUM and JOSSE: No significant abnormality. LUNGS: No acute air space or interstitial disease. PLEURA: No significant pleural effusion. No pneumothorax. ADDITIONAL FINDINGS: Severe bilateral axillary adenopathy. The largest node measures about 2 cm in sh ort axis within the left axilla.. UPPER ABDOMEN: Severe adenopathy throughout much of the upper retroperitoneum and upper mesentery.. SKELETAL SYSTEM: No significant abnormality. IMPRESSION: Severe axillary and upper abdominal adenopathy consistent with patient's known leukemia. No acute fin dings identified within the lungs. Signer Name: Gus Boudreaux MD Signed: 04/02/2019 9:44 PM Workstation Name: [id number]
[2019-04-02 21:51] LABS: Anisocytosis 1+; Band Neutrophils # (Manual) 0.7 K/mm3; Basophils % (Manual) 0 % (0.0-1.8); Eosinophils % (Manual) 0.5 % (0.0-4.3); Myelocytes # (Manual) 0.3 K/mm3; Total Cells Counted 200
[2019-04-02 21:52] LABS: Ovalocytes Few; Poikilocytosis Few
[2019-04-02 21:53] LABS: Tear Drop Cells Few
[2019-04-02 21:59] LABS: Platelet Estimate Consistent w Auto; Smudge Cells 2+
[2019-04-02] MEDS: SODIUM CHLORIDE FLUSH SYRINGE 10 ML IV SCH (22:27)
--- NOTE | 2019-04-03 07:53 | Progress Note ---
Assessment and Plan Assessment and plan: 69 YO Female with HTN, Malnutrition, OA, Asthma, Lumbar Pain presents to ED for evaluation. PT states that she has experienced shortness of breath, generalized weakness, and chest discomfort over the past 2 weeks, with worsening symptoms over the past 3 days. Pt acknowledges decreased oral intake, early satiety, 25lbs unintentional weight loss, night sweats, chest discomfort, and decreased exercise tolerance. Pt transported to [facility] via private vehicle. Pt seen and evaluated in ED and found to have symptoms consistent with CLL, as well as ARF, Acidosis, Severe Malnutrution, and Hyponatremia. Hematology consulted in ED. Nephrology consulted in ED. Pt admitted to [facility] unit and initiated on IVF resusc itation therapy. Prior admission on 11/09/15 reviewed. All listed medication reconciled at time of admission. PCP: Dr. Tyron Sung CT Chest: With severe adenopathy throughout much of the upper abdominal axillary area consistent with leukemia (1) ARF (acute renal failure) with tubular necrosis IVF resuscitation therapy, urine electrolytes, monitor uop q shift, Nephrology consulted in ED, renal ultrasound, monitor serum creatinine. (2) CLL (chronic lymphocytic leukemia) Current Visit: Yes Status: Acute Plan to address problem: Hematology consulted by ED, Dr. Castañeda is available by telephone if questions regarding patient stats, IVF resuscitation therapy, LDH, Phosphorous level, magnesium, Peripheral smear sent to pathology for evaluation, Continue of follow-up of other results. Diagnoses discussed with patient. (3) Severe malnutrition Current Visit: Yes Status: Acute Plan to address problem: Encourage increased protein intake, dietary supplementation, diet as tolerated (4) A metabolic acidosis Current Visit: Yes Status: Acute Plan to address problem: IVF resuscitation therapy, repeat bmp in AM. (5) Hyponatremia syndrome Current Visit: Yes Status: Acute Plan to address problem: IVF resuscitation therapy, repeat bmp (6) DVT prophylaxis Current Visit: Yes Status: Acute Plan to address problem: SCD to BLE while in bed. Pt ambulatory History Interval history: Patient seen and examined this morning reports feeling of hunger otherwise continues to complain of lethargy but improved today. Hospitalist Physical - Physical exam Narrative exam: VITAL SIGNS: Reviewed. GENERAL: The patient appeared cachectic, ill-appearing., Vital signs as documented. HEAD: No signs of head trauma. Marked temporal wasting EYES: Pupils are equal. Extraocular motions intact. EARS: Hearing grossly intact. MOUTH: Oropharynx is normal. NECK: No adenopathy, no JVD. CHEST: Chest with clear breath sounds bilaterally. No wheezes, rales, or rhonchi. CARDIAC: Regular rate and rhythm. S1 and S2, without murmurs, gallops, or rubs. VASCULAR: No Edema. Peripheral pulses normal and equal in all extremities. ABDOMEN: Soft, non tender and non distended. No rebound or guarding, and no masses palpated. Bowel Sounds normal. MUSCULOSKELETAL: Good range of motion of all major joints. Extremities without clubbing, cyanosis or edema. NEUROLOGIC EXAM: Alert and oriented x 3 No focal sensory or strength deficits. Speech normal. Follows commands. PSYCHIATRIC: Mood normal. SKIN: detail exam as documented in skin assessment - Constitutional Vitals: Temp Pulse Resp BP Pulse Ox 98.1 F 99 H 16 99/64 100 04/03/19 03:03 04/03/19 03:03 04/03/19 03:03 04/03/19 03:03 04/03/19 03:03 General appearance: Present: mild distress, cachectic Results - Labs CBC & Chem 7: 04/02/19 19:03 04/02/19 19:03 Labs: Laboratory Last Values WBC 66.4 K/mm3 (4.5-11.0) H* 04/02/19 19:03 RBC 3.79 M/mm3 (3.65-5.03) 04/02/19 19:03 Hgb 12.0 gm/dl (10.1-14.3) 04/02/19 19:03 Hct 37.4 % (30.3-42.9) 04/02/19 19:03 MCV 99 fl (79-97) H 04/02/19 19:03 MCH 32 pg (28-32) 04/02/19 19:03 MCHC 32 % (30-34) 04/02/19 19:03 RDW 15.3 % (13.2-15.2) H 04/02/19 19:03 Plt Count 229 K/mm3 (140-440) 04/02/19 19:03 Lymph % (Auto) Hand Loom Weaver 04/02/19 19:03 Lymph # Hand Loom Weaver 04/02/19 19:03 Add Manual Diff Complete 04/02/19 19:03 Total Counted 200 04/02/19 19:03 Seg Neutrophils % Hand Loom Weaver 04/02/19 19:03 Seg Neuts % (Manual) 13.0 % (40.0-70.0) L 04/02/19 19:03 1.0 % 04/02/19 19:03 81.5 % (13.4-35.0) H 04/02/19 19:03 Reactive Lymphs % (Man) 1.0 % 04/02/19 19:03 2.0 % (0.0-7.3) 04/02/19 19:03 0.5 % (0.0-4.3) 04/02/19 19:03 0 % (0.0-1.8) 04/02/19 19:03 0.5 % 04/02/19 19:03 0.5 % 04/02/19 19:03 0 % 04/02/19 19:03 0 % 04/02/19 19:03 Nucleated RBC % Not Reportable 04/02/19 19:03 Seg Neutrophils # Man 8.6 K/mm3 (1.8-7.7) H 04/02/19 19:03 Band Neutrophils # 0.7 K/mm3 04/02/19 19:03 54.1 K/mm3 (1.2-5.4) H 04/02/19 19:03 Abs React Lymphs (Man) 0.7 K/mm3 04/02/19 19:03 1.3 K/mm3 (0.0-0.8) H 04/02/19 19:03 0.3 K/mm3 (0.0-0.4) 04/02/19 19:03 0.0 K/mm3 (0.0-0.1) 04/02/19 19:03 0.3 K/mm3 04/02/19 19:03 0.3 K/mm3 04/02/19 19:03 0.0 K/mm3 04/02/19 19:03 Blast Cells # 0.0 K/mm3 04/02/19 19:03 Hypersegmented Neuts Not Reportable 04/02/19 19:03 Hyposegmented Neuts Not Reportable 04/02/19 19:03 Hypogranular Neuts Not Reportable 04/02/19 19:03 2+ 04/02/19 19:03 Not Reportable 04/02/19 19:03 Not Reportable 04/02/19 19:03 Not Reportable 04/02/19 19:03 Not Reportable 04/02/19 19:03 Not Reportable 04/02/19 19:03 Consistent w auto 04/02/19 19:03 Not Reportable 04/02/19 19:03 Plt Clumps, EDTA Not Reportable 04/02/19 19:03 Not Reportable 04/02/19 19:03 Not Reportable 04/02/19 19:03 Not Reportable 04/02/19 19:03 Plt Morphology Comment Not Reportable 04/02/19 19:03 RBC Morphology Not Reportable 04/02/19 19:03 Dimorphic RBCs Not Reportable 04/02/19 19:03 Not Reportable 04/02/19 19:03 Not Reportable 04/02/19 19:03 Few 04/02/19 19:03 1+ 04/02/19 19:03 Not Reportable 04/02/19 19:03 Not Reportable 04/02/19 19:03 Not Reportable 04/02/19 19:03 Not Reportable 04/02/19 19:03 Not Reportable 04/02/19 19:03 Not Reportable 04/02/19 19:03 Few 04/02/19 19:03 Few 04/02/19 19:03 Not Reportable 04/02/19 19:03 Not Reportable 04/02/19 19:03 Not Reportable 04/02/19 19:03 Not Reportable 04/02/19 19:03 Not Reportable 04/02/19 19:03 Not Reportable 04/02/19 19:03 Not Reportable 04/02/19 19:03 Acanthocytes (Spur) Not Reportable 04/02/19 19:03 Rouleaux Not Reportable 04/02/19 19:03 Not Reportable 04/02/19 19:03 Not Reportable 04/02/19 19:03 Not Reportable 04/02/19 19:03 Not Reportable 04/02/19 19:03 Hem Pathologist Commnt Sent to pathology 04/02/19 19:03 Sodium 132 mmol/L (137-145) L 04/02/19 19:03 Potassium 4.3 mmol/L (3.6-5.0) 04/02/19 19:03 Chloride 91.9 mmol/L (98-107) L 04/02/19 19:03 Carbon Dioxide 19 mmol/L (22-30) L 04/02/19 19:03 25 mmol/L 04/02/19 19:03 BUN 62 mg/dL (7-17) H 04/02/19 19:03 3.0 mg/dL (0.7-1.2) H 04/02/19 19:03 Estimated GFR 19 ml/min 04/02/19 19:03 21 % 04/02/19 19:03 Glucose 141 mg/dL (65-100) H 04/02/19 19:03 17.4 mg/dL (3.5-7.6) H 04/02/19 20:52 Calcium 11.7 mg/dL (8.4-10.2) H 04/02/19 19:03 Phosphorus 5.20 mg/dL (2.5-4.5) H 04/02/19 20:52 Magnesium 2.90 mg/dL (1.7-2.3) H 04/02/19 20:52 0.30 mg/dL (0.1-1.2) 04/02/19 19:03 AST 15 units/L (5-40) 04/02/19 19:03 ALT 10 units/L (7-56) 04/02/19 19:03 69 units/L (35-129) 04/02/19 19:03 262 units/L (91-180) H 04/02/19 20:52 < 0.010 ng/mL (0.00-0.029) 04/02/19 19:03 8.6 g/dL (6.3-8.2) H 04/02/19 19:03 5.1 g/dL (3.9-5) H 04/02/19 19:03 1.5 % 04/02/19 19:03 Active Medications - Current Medications Current Medications: Generic Name Dose Route Start Last Admin Trade Name Freq PRN Reason Stop Dose Admin Acetaminophen 650 mg 04/02/19 20:40 Tylenol PO Q4H PRN Pain MILD(1-3)/Fever >100.5/COX Acetaminophen/Codeine Phosphate 1 tab 04/02/19 20:46 Tylenol #3 PO Q6H PRN Pain Albuterol 2.5 mg 04/02/19 20:40 Proventil IH Q4HRT PRN Shortness Of Breath Amlodipine Besylate 5 mg 04/03/19 10:00 Norvasc PO DAILY RADHA Aspirin 81 mg 04/03/19 10:00 Baby Aspirin PO QDAY RADHA Fluticasone Propionate 50 mcg 04/03/19 10:00 Flonase NS QDAY RADHA Sodium Chloride 1,000 mls @ 75 mls/hr 04/02/19 21:00 04/02/19 23:12 Nacl 0.45% 1000 Ml IV 75 mls/hr DIRECT RADHA Administration Ondansetron HCl 4 mg 04/02/19 20:40 Zofran IV Q8H PRN Nausea And Vomiting Oxycodone/Acetaminophen 1 tab 04/02/19 20:40 Percocet 5/325 PO Q6H PRN Pain, Moderate (4-6) Sodium Chloride 10 ml 04/02/19 22:00 04/02/19 22:27 Sodium Chloride Flush Syringe 10 Ml IV 10 ml BID RADHA Administration Sodium Chloride 10 ml 04/02/19 20:40 Sodium Chloride Flush Syringe 10 Ml IV PRN PRN LINE FLUSH
[2019-04-03 09:52] LABS: Creatinine,Urine 152.5 mg/dL (0.1-20.0)
[2019-04-03] MEDS: BABY ASPIRIN PO SCH (10:49)
[2019-04-03] MEDS: FLONASE NS SCH (10:50)
[2019-04-03] MEDS: SODIUM CHLORIDE FLUSH SYRINGE 10 ML IV SCH ×2 (10:51→22:14)
[2019-04-03] MEDS: NORVASC PO SCH (11:55)
[2019-04-03] MEDS ORDERED: NACL 0.9% 1000 ML 1,000 ML IV ONE (13:00)
--- NOTE | 2019-04-03 19:12 | Consultation ---
History of Present Illness - Reason for Consult Consult date: 04/03/19 acute renal failure Requesting physician: YNI FRANZ - History of Present Illness 69-year-old lady with a history of hypertension presents with 3 days history of chest pain, shortness of breath, leg weakness with dizziness. Was found to have severe leukocytosis with white blood cell count of 66,400. BUN/ creatinine also elevated at 60/3 mg/dL and calcium high at 11.7 mg/dL. Patient is not on a thiazide diuretic but has been taking ibuprofen 2-3 times a day because of right shoulder pain following a workplace injury years ago. She denies any voiding difficulties. No frequency, urgency, dysuria or hematuria. No history of kidney stones or recurrent infections. She's not been exposed to radiocontrast. 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 She lives with her daughter, grandson and uncle). denies: smoking, alcohol abuse, prescription drug abuse Family history: CAD (father of heart disease at age 84), hypertension, other (mother had ESRD and was on dialysis till she at age 89.) Medications and Allergies Allergies Allergy/AdvReac Type Severity Reaction Status Date / Time No Known Allergies Allergy Verified 11/09/15 01:46 Home Medications Medication Instructions Recorded Confirmed Last Taken Type Albuterol Sulfate [Ventolin HFA] 2 puff IH Q4H PRN 11/04/15 04/03/19 04/02/19 09:00 History 2puffs Fluticasone [Flonase] 1 spray NS QDAY 11/04/15 04/03/19 04/02/19 10:00 History 1 spray Aspirin [Aspirin BABY CHEW TAB] 81 mg PO QDAY tab.chew 11/09/15 04/03/19 03/31/19 09:00 Rx 81mg Fexofenadine/Pseudoephedrine 1 each PO QDAY 11/09/15 04/03/19 03/31/19 09:00 History [Joyce-D 12 Hour Tablet] 1 amLODIPine [Norvasc] 5 mg PO DAILY 03/04/17 04/03/19 03/31/19 09:00 History 5mg Acetaminophen/Codeine [Tylenol 1 tab PO Q6H PRN #6 tab 04/16/17 04/03/19 03/21/19 09:00 Rx /Codeine # 3 tab] 1 tab traMADol [Ultram] 50 mg PO Q6HR PRN #12 tablet 04/16/17 04/03/19 03/31/19 18:00 Rx 50mg Active Meds: Active Medications Acetaminophen (Tylenol) 650 mg PO Q4H PRN PRN Reason: Pain MILD(1-3)/Fever >100.5/COX Acetaminophen/Codeine Phosphate (Tylenol #3) 1 tab PO Q6H PRN PRN Reason: Pain Albuterol (Proventil) 2.5 mg IH Q4HRT PRN PRN Reason: Shortness Of Breath Amlodipine Besylate (Norvasc) 5 mg PO DAILY [facility] Last Admin: 04/03/19 11:55 Dose: Not Given Documented by: Aspirin (Baby Aspirin) 81 mg PO QDAY [facility] Last Admin: 04/03/19 10:49 Dose: 81 mg Documented by: Fluticasone Propionate (Flonase) 50 mcg NS QDAY [facility] Last Admin: 04/03/19 10:50 Dose: 50 mcg Documented by: Sodium Chloride (Nacl 0.45% 1000 Ml) 1,000 mls @ 75 mls/hr IV DIRECT [facility] Last Admin: 04/02/19 23:12 Dose: 75 mls/hr Documented by: Ondansetron HCl (Zofran) 4 mg IV Q8H PRN PRN Reason: Nausea And Vomiting Oxycodone/Acetaminophen (Percocet 5/325) 1 tab PO Q6H PRN PRN Reason: Pain, Moderate (4-6) Sodium Chloride (Sodium Chloride Flush Syringe 10 Ml) 10 ml IV BID [facility] Last Admin: 04/03/19 10:51 Dose: 10 ml Documented by: Sodium Chloride (Sodium Chloride Flush Syringe 10 Ml) 10 ml IV PRN PRN PRN Reason: LINE FLUSH Review of Systems All systems: negative (as listed in the history of present illness. Also admits to itching all over) Exam - Vital Signs Vital signs: Vital Signs Temp Pulse Resp BP Pulse Ox 97.5 F L 109 H 22 98/70 100 04/02/19 18:13 04/02/19 18:13 04/02/19 18:13 04/02/19 18:13 04/02/19 18:13 - Physical Exam Narrative exam: Elderly, -Malagasy female lying in bed in no acute distress HEENT: NCAT, pink oral mucous membrane Neck: Supple, no venous distention CVS: S1S2 RRR with no murmur, rub or gallop Chest: Clear to auscultation Abdomen: Protuberant, soft, nontender, no organomegaly, bowel sounds are present Extremities: No edema Neuro: Awake, alert no focal deficits Results - Lab Results 04/04/19 03:47 04/04/19 03:47 Most recent lab results Calcium 11.7 mg/dL (8.4-10.2) H 04/02/19 19:03 Phosphorus 5.20 mg/dL (2.5-4.5) H 04/02/19 20:52 Magnesium 2.90 mg/dL (1.7-2.3) H 04/02/19 20:52 152.5 mg/dL (0.1-20.0) H 04/03/19 Unknown 12 mmol/L 04/03/19 Unknown Assessment and Plan - Patient Problems (1) Acute kidney failure Current Visit: Yes Status: Acute Plan to address problem: Acute kidney injury prerenal azotemia versus acute tubular necrosis secondary to sepsis and NSAID use. Get kidney and bladder USS. Get urinalysis. Quantify proteinuria if present. Continue volume repletion. Avoid NSAID use and other nephrotoxins if possible. Follow up electrolytes and renal function. (2) Acidosis, metabolic Current Visit: Yes Status: Acute Plan to address problem: Probably secondary to kidney failure. Start sodium bicarbonate intravenously (3) Hyponatremia Current Visit: Yes Status: Acute Plan to address problem: Hypovolemic. Continue volume repletion with isotonic saline (4) Hypercalcemia Current Visit: Yes Status: Acute Plan to address problem: Continue volume expansion with isotonic saline. Follow calcium. Check serum intact PTH and vitamin D level (5) Leukocytosis Current Visit: Yes Status: Acute Plan to address problem: Cultures obtained already. Follow-up cultures. Hematology also been consulted to evaluate patient for leukemia. (6) Hyperuricemia Current Visit: Yes Status: Acute Plan to address problem: Primary secondary to leukocytosis. Concern about tumor lysis syndrome that she does not meet criteria for a diagnosis. Start sodium bicarbonate IV and start allopurinol. Follow-up uric acid.
[2019-04-03] MEDS ORDERED: NACL 0.45% 1000 ML 1,000 ML with SODIUM BICARBONATE 75 MEQ IV SCH (20:00)
[2019-04-04 04:01] LABS: Bilirubin,Urine NEG (Negative); Blood,Urine SM (Negative); Color,Urine Yellow (Yellow); Protein,Urine <15 mg/dL mg/dL (Negative); Urobilinogen,Urine < 2.0 mg/dL (<2.0); WBC,Urine < 1.0 /HPF (0.0-6.0)
[2019-04-04] MEDS: SODIUM BICARBONATE 75 MEQ in NACL 0.45% 1000 ML 1,000 ML IV SCH ×2 (04:09→16:36)
[2019-04-04 05:14] LABS: Hematocrit 31.7 % (30.3-42.9); Hemoglobin 10.3 gm/dl (10.1-14.3); Mean Corpuscular HGB Conc 33 % (30-34); Mean Corpuscular Volume 99 fl (79-97); Platelet Count 201 K/mm3 (140-440); Red Blood Count 3.21 M/mm3 (3.65-5.03); Red Cell Distribution Width 15.2 % (13.2-15.2)
[2019-04-04 05:24] LABS: Calcium 9.5 mg/dL (8.4-10.2)
[2019-04-04 05:34] LABS: Uric Acid 13.6 mg/dL (3.5-7.6)
[2019-04-04 06:15] LABS: Basophils % (Manual) 0 % (0.0-1.8); Eosinophils % (Manual) 0 % (0.0-4.3); Total Cells Counted 100
[2019-04-04 06:16] LABS: Smudge Cells 2+
[2019-04-04 06:17] LABS: Platelet Estimate Cons
[2019-04-04 06:18] LABS: Hypochromasia 1+; Tear Drop Cells Few
--- NOTE | 2019-04-04 08:44 | Progress Note ---
Assessment and Plan - Patient Problems (1) Acute kidney failure Current Visit: Yes Status: Acute Plan to address problem: Acute kidney injury prerenal azotemia versus acute tubular necrosis secondary to sepsis and NSAID use. Kidney function is improving. Follow-up kidney and bladder USS. Continue volume repletion. Avoid NSAID use and other nephrotoxins if possible. Follow up electrolytes and renal function. (2) Acidosis, metabolic Current Visit: Yes Status: Acute Plan to address problem: Probably secondary to kidney failure. Continue sodium bicarbonate intravenously (3) Hyponatremia Current Visit: Yes Status: Acute Plan to address problem: Hypovolemic. Continue volume repletion with isotonic saline (4) Hypercalcemia Current Visit: Yes Status: Acute Plan to address problem: Continue volume expansion with isotonic saline. Follow calcium. Check serum intact PTH and vitamin D level (5) Leukocytosis Current Visit: Yes Status: Acute Plan to address problem: Cultures obtained already. Follow-up cultures. Hematology also been consulted to evaluate patient for leukemia. (6) Hyperuricemia Current Visit: Yes Status: Acute Plan to address problem: Primary secondary to leukocytosis. Concerned about tumor lysis syndrome that she does not meet criteria for a diagnosis. Uric acid improving. Continue sodium bicarbonate IV and allopurinol. Follow-up uric acid. Subjective Date of service: 04/04/19 Principal diagnosis: acute kidney injury, leukocytosis Interval history: patient seen lying in bed. Complains of cough which is nonproductive. Also complains of itching all over Objective - Exam Narrative Exam: Elderly, -Aust[place] female lying in bed in no acute distress HEENT: NCAT, pink oral mucous membrane Neck: Supple, no venous distention CVS: S1S2 RRR with no murmur, rub or gallop Chest: Clear to auscultation Abdomen: Protuberant, soft, nontender, no organomegaly, bowel sounds are present Extremities: No edema Neuro: Awake, alert no focal deficits - Vital Signs Vital signs: Vital Signs - 12hr 04/03/19 04/03/19 04/04/19 21:23 22:00 03:02 Temperature 98.4 F Pulse Rate 89 85 Respiratory 16 16 Rate Blood Pressure 91/53 O2 Sat by Pulse 99 100 Oximetry 04/04/19 07:30 Temperature 98.4 F Pulse Rate 82 Respiratory 20 Rate Blood Pressure 104/65 O2 Sat by Pulse 99 Oximetry - Lab 04/04/19 03:47 04/04/19 03:47 Most recent lab results Calcium 9.5 mg/dL (8.4-10.2) D 04/04/19 03:47 Phosphorus 2.40 mg/dL (2.5-4.5) L D 04/04/19 03:47 Magnesium 2.90 mg/dL (1.7-2.3) H 04/02/19 20:52 152.5 mg/dL (0.1-20.0) H 04/03/19 Unknown 12 mmol/L 04/03/19 Unknown Medications & Allergies - Medications Allergies/Adverse Reactions: Allergies No Known Allergies Allergy (Verified 11/09/15 01:46) Home Medications: Home Medications Medication Instructions Recorded Confirmed Last Taken Type Albuterol Sulfate [Ventolin HFA] 2 puff IH Q4H PRN 11/04/15 04/03/19 04/02/19 09:00 History 2puffs Fluticasone [Flonase] 1 spray NS QDAY 11/04/15 04/03/19 04/02/19 10:00 History 1 spray Aspirin [Aspirin BABY CHEW TAB] 81 mg PO QDAY tab.chew 11/09/15 04/03/19 03/31/19 09:00 Rx 81mg Fexofenadine/Pseudoephedrine 1 each PO QDAY 11/09/15 04/03/19 03/31/19 09:00 History [Joyce-D 12 Hour Tablet] 1 amLODIPine [Norvasc] 5 mg PO DAILY 03/04/17 04/03/19 03/31/19 09:00 History 5mg Acetaminophen/Codeine [Tylenol 1 tab PO Q6H PRN #6 tab 04/16/17 04/03/19 03/21/19 09:00 Rx /Codeine # 3 tab] 1 tab traMADol [Ultram] 50 mg PO Q6HR PRN #12 tablet 04/16/17 04/03/19 03/31/19 18:00 Rx 50mg Active Medications: Generic Name Dose Route Start Last Admin Trade Name Freq PRN Reason Stop Dose Admin Acetaminophen 650 mg 04/02/19 20:40 Tylenol PO Q4H PRN Pain MILD(1-3)/Fever >100.5/COX Acetaminophen/Codeine Phosphate 1 tab 04/02/19 20:46 Tylenol #3 PO Q6H PRN Pain Albuterol 2.5 mg 04/02/19 20:40 Proventil IH Q4HRT PRN Shortness Of Breath Allopurinol 100 mg 04/04/19 10:00 Zyloprim PO QDAY RADHA Amlodipine Besylate 5 mg 04/03/19 10:00 04/03/19 11:55 Norvasc PO Not Given DAILY RADHA Aspirin 81 mg 04/03/19 10:00 04/03/19 10:49 Baby Aspirin PO 81 mg QDAY RADHA Administration Fluticasone Propionate 50 mcg 04/03/19 10:00 04/03/19 10:50 Flonase NS 50 mcg QDAY RADHA Administration Sodium Bicarbonate 75 meq/ 1,075 mls @ 100 mls/hr 04/04/19 04:00 04/04/19 04:09 Sodium Chloride IV 100 mls/hr DIRECT RADHA Administration Ondansetron HCl 4 mg 04/02/19 20:40 Zofran IV Q8H PRN Nausea And Vomiting Oxycodone/Acetaminophen 1 tab 04/02/19 20:40 Percocet 5/325 PO Q6H PRN Pain, Moderate (4-6) Sodium Chloride 10 ml 04/02/19 22:00 04/03/19 22:14 Sodium Chloride Flush Syringe 10 Ml IV 10 ml BID RADHA Administration Sodium Chloride 10 ml 04/02/19 20:40 Sodium Chloride Flush Syringe 10 Ml IV PRN PRN LINE FLUSH
[2019-04-04] MEDS ORDERED: NACL 0.9% 1000 ML 1,000 ML IV ONE (09:00)
[2019-04-04] MEDS: FLONASE NS SCH (10:39)
[2019-04-04] MEDS: BABY ASPIRIN PO SCH (10:40)
[2019-04-04] MEDS: ZYLOPRIM PO SCH (10:40)
[2019-04-04] MEDS: SODIUM CHLORIDE FLUSH SYRINGE 10 ML IV SCH (10:40)
[2019-04-04] MEDS: NORVASC PO SCH (10:55)
--- NOTE | 2019-04-04 14:33 | Ultrasound Report ---
ULTRASOUND RENAL INDICATION: renal failure COMPARISON: No relevant prior imaging study available. FINDINGS: RIGHT KIDNEY: Size: 9.2 cm. Echogenicity: Mildly increased. Cortical thickness: Normal. Stones: None. Hydronephrosis: Slight prominence of the collecting system. Cyst or mass: None. LEFT KIDNEY: Size: 9.5 cm. Echogenicity: Mildly increased. Cortical thickness: Normal. Stones: None. Hydronephrosis: None. Cyst or mass: None. Urinary Bladder: Not visualized; patient voided just prior to the procedure. Free Fluid: None. Additional Findings: None. IMPRESSION: Right renal collecting system is slightly prominent of unknown chronicity. Mild bilateral increase in echogenicity as can be seen with renal failure. Signer Name: Yeyo Pandey MD Signed: 04/03/2019 8:22 AM Workstation Name: [id number]
--- NOTE | 2019-04-04 15:15 | Progress Note ---
Assessment and Plan Assessment and plan: 69 YO Female with HTN, Malnutrition, OA, Asthma, Lumbar Pain presents to ED for evaluation. PT states that she has experienced shortness of breath, generalized weakness, and chest discomfort over the past 2 weeks, with worsening symptoms over the past 3 days. Pt acknowledges decreased oral intake, early satiety, 25lbs unintentional weight loss, night sweats, chest discomfort, and decreased exercise tolerance. Pt transported to [facility] via private vehicle. Pt seen and evaluated in ED and found to have symptoms consistent with CLL, as well as ARF, Acidosis, Severe Malnutrution, and Hyponatremia. Hematology consulted in ED. Nephrology consulted in ED. Pt admitted to [facility] unit and initiated on IVF resusc itation therapy. Prior admission on 11/09/15 reviewed. All listed medication reconciled at time of admission. PCP: Dr. Tyron Sung CT Chest: With severe adenopathy throughout much of the upper abdominal axillary area consistent with leukemia Leukemia Acute Kidney Injury secondary to Tubular Necrosis Severe Protein Calorie Malnutrition- Pt. reports 25 ib wt loss in recent 3-6 months. Metabolic Acidosis Hyponatremia secondary SIDH HyperCalcemia Uric Acidosis secondary tumor Lysis syndrome * Continue supportive care, IVF, Bicarb drip, allopurinol. * Monitor Uric Acid, calcium Check flow cytometry, peripheral smear, Vitamin D and PTH * Sodium Bicarbonate IV * No clinical evidence of sepsis at this time. * Hematology consult * Nephrology input appreciated * Avoid NSAID on a nephrotoxins if possible * Findings and diagnoses discussed with the patient in detail * DVT/GI Prophy History Interval history: Patient seen and examined this morning reports feeling better, tolerated diet today. Hospitalist Physical - Physical exam Narrative exam: VITAL SIGNS: Reviewed. GENERAL: The patient appeared cachectic, ill-appearing, Vital signs as documented. HEAD: No signs of head trauma. Marked temporal wasting EYES: Pupils are equal. Extraocular motions intact. EARS: Hearing grossly intact. MOUTH: Oropharynx is normal. NECK: No adenopathy, no JVD. CHEST: Chest with clear breath sounds bilaterally. No wheezes, rales, or rh onchi. CARDIAC: Regular rate and rhythm. S1 and S2, without murmurs, gallops, or rubs. VASCULAR: Peripheral pulses normal and equal in all extremities. ABDOMEN: Soft, non tender and non distended. No rebound or guarding, and no masses palpated. Bowel Sounds normal. MUSCULOSKELETAL: Good range of motion of all major joints. Extremities without clubbing, cyanosis or edema. NEUROLOGIC EXAM: Alert and oriented x 3 No focal sensory or strength deficits. Speech normal. Follows commands. PSYCHIATRIC: Mood normal. SKIN: detail exam as documented in skin assessment - Constitutional Vitals: Temp Pulse Resp BP Pulse Ox 98.3 F 91 H 20 106/60 100 04/04/19 13:14 04/04/19 13:14 04/04/19 13:14 04/04/19 13:14 04/04/19 13:14 General appearance: Present: mild distress, cachectic Results - Labs CBC & Chem 7: 04/04/19 03:47 04/04/19 03:47 Labs: Laboratory Last Values WBC 50.3 K/mm3 (4.5-11.0) H* 04/04/19 03:47 RBC 3.21 M/mm3 (3.65-5.03) L 04/04/19 03:47 Hgb 10.3 gm/dl (10.1-14.3) 04/04/19 03:47 Hct 31.7 % (30.3-42.9) 04/04/19 03:47 MCV 99 fl (79-97) H 04/04/19 03:47 MCH 32 pg (28-32) 04/04/19 03:47 MCHC 33 % (30-34) 04/04/19 03:47 RDW 15.2 % (13.2-15.2) 04/04/19 03:47 Plt Count 201 K/mm3 (140-440) 04/04/19 03:47 Lymph % (Auto) Animal Sticker 04/04/19 03:47 Lymph # Animal Sticker 04/04/19 03:47 Add Manual Diff Complete 04/04/19 03:47 Total Counted 100 04/04/19 03:47 Seg Neutrophils % Animal Sticker 04/04/19 03:47 Seg Neuts % (Manual) 22.0 % (40.0-70.0) L 04/04/19 03:47 0 % 04/04/19 03:47 74.0 % (13.4-35.0) H 04/04/19 03:47 Reactive Lymphs % (Man) 2.0 % 04/04/19 03:47 1.0 % (0.0-7.3) 04/04/19 03:47 0 % (0.0-4.3) 04/04/19 03:47 0 % (0.0-1.8) 04/04/19 03:47 1.0 % 04/04/19 03:47 0 % 04/04/19 03:47 0 % 04/04/19 03:47 0 % 04/04/19 03:47 Nucleated RBC % Not Reportable 04/04/19 03:47 Seg Neutrophils # Man 11.1 K/mm3 (1.8-7.7) H 04/04/19 03:47 Band Neutrophils # 0.0 K/mm3 04/04/19 03:47 37.2 K/mm3 (1.2-5.4) H 04/04/19 03:47 Abs React Lymphs (Man) 1.0 K/mm3 04/04/19 03:47 0.5 K/mm3 (0.0-0.8) 04/04/19 03:47 0.0 K/mm3 (0.0-0.4) 04/04/19 03:47 0.0 K/mm3 (0.0-0.1) 04/04/19 03:47 0.5 K/mm3 04/04/19 03:47 0.0 K/mm3 04/04/19 03:47 0.0 K/mm3 04/04/19 03:47 Blast Cells # 0.0 K/mm3 04/04/19 03:47 Pathologist Review 04/02/19 19:03 WBC Morphology Not Reportable 04/04/19 03:47 WBC Morphology TNR 04/04/19 03:47 Hypersegmented Neuts Not Reportable 04/04/19 03:47 Hyposegmented Neuts Not Reportable 04/04/19 03:47 Hypogranular Neuts Not Reportable 04/04/19 03:47 2+ 04/04/19 03:47 Not Reportable 04/04/19 03:47 Not Reportable 04/04/19 03:47 Not Reportable 04/04/19 03:47 Not Reportable 04/04/19 03:47 Not Reportable 04/04/19 03:47 Cons 04/04/19 03:47 Not Reportable 04/04/19 03:47 Plt Clumps, EDTA Not Reportable 04/04/19 03:47 Not Reportable 04/04/19 03:47 Not Reportable 04/04/19 03:47 Not Reportable 04/04/19 03:47 Plt Morphology Comment Not Reportable 04/04/19 03:47 RBC Morphology Not Reportable 04/04/19 03:47 Dimorphic RBCs Not Reportable 04/04/19 03:47 Not Reportable 04/04/19 03:47 1+ 04/04/19 03:47 Not Reportable 04/04/19 03:47 Not Reportable 04/04/19 03:47 Not Reportable 04/04/19 03:47 Not Reportable 04/04/19 03:47 Not Reportable 04/04/19 03:47 Not Reportable 04/04/19 03:47 Not Reportable 04/04/19 03:47 Not Reportable 04/04/19 03:47 Few 04/04/19 03:47 Not Reportable 04/04/19 03:47 Not Reportable 04/04/19 03:47 Not Reportable 04/04/19 03:47 Not Reportable 04/04/19 03:47 Not Reportable 04/04/19 03:47 Not Reportable 04/04/19 03:47 Not Reportable 04/04/19 03:47 Not Reportable 04/04/19 03:47 Acanthocytes (Spur) Not Reportable 04/04/19 03:47 Rouleaux Not Reportable 04/04/19 03:47 Not Reportable 04/04/19 03:47 Not Reportable 04/04/19 03:47 Not Reportable 04/04/19 03:47 Not Reportable 04/04/19 03:47 Hem Pathologist Commnt No 04/04/19 03:47 Sodium 138 mmol/L (137-145) 04/04/19 03:47 Potassium 3.6 mmol/L (3.6-5.0) 04/04/19 03:47 Chloride 102.5 mmol/L (98-107) 04/04/19 03:47 Carbon Dioxide 23 mmol/L (22-30) 04/04/19 03:47 16 mmol/L 04/04/19 03:47 BUN 51 mg/dL (7-17) H 04/04/19 03:47 1.5 mg/dL (0.7-1.2) H 04/04/19 03:47 Estimated GFR 42 ml/min 04/04/19 03:47 34 % 04/04/19 03:47 Glucose 138 mg/dL (65-100) H 04/04/19 03:47 13.6 mg/dL (3.5-7.6) H 04/04/19 03:47 Calcium 9.5 mg/dL (8.4-10.2) D 04/04/19 03:47 Phosphorus 2.40 mg/dL (2.5-4.5) L D 04/04/19 03:47 Magnesium 2.90 mg/dL (1.7-2.3) H 04/02/19 20:52 0.30 mg/dL (0.1-1.2) 04/02/19 19:03 AST 15 units/L (5-40) 04/02/19 19:03 ALT 10 units/L (7-56) 04/02/19 19:03 69 units/L (35-129) 04/02/19 19:03 262 units/L (91-180) H 04/02/19 20:52 < 0.010 ng/mL (0.00-0.029) 04/02/19 19:03 8.6 g/dL (6.3-8.2) H 04/02/19 19:03 5.1 g/dL (3.9-5) H 04/02/19 19:03 1.5 % 04/02/19 19:03 Yellow (Yellow) 04/04/19 03:05 Clear (Clear) 04/04/19 03:05 6.0 (5.0-7.0) 04/04/19 03:05 Ur Specific [place] 1.015 (1.003-1.030) 04/04/19 03:05 <15 mg/dl mg/dL (Negative) 04/04/19 03:05 Neg mg/dL (Negative) 04/04/19 03:05 Neg mg/dL (Negative) 04/04/19 03:05 Sm (Negative) 04/04/19 03:05 Neg (Negative) 04/04/19 03:05 Neg (Negative) 04/04/19 03:05 < 2.0 mg/dL (<2.0) 04/04/19 03:05 Ur Leukocyte Esterase Neg (Negative) 04/04/19 03:05 < 1.0 /HPF (0.0-6.0) 04/04/19 03:05 3.0 /HPF (0.0-6.0) 04/04/19 03:05 U Epithel Cells (Auto) < 1.0 /HPF (0-13.0) 04/04/19 03:05 152.5 mg/dL (0.1-20.0) H 04/03/19 Unknown 12 mmol/L 04/03/19 Unknown Active Medications - Current Medications Current Medications: Generic Name Dose Route Start Last Admin Trade Name Freq PRN Reason Stop Dose Admin Acetaminophen 650 mg 04/02/19 20:40 Tylenol PO Q4H PRN Pain MILD(1-3)/Fever >100.5/COX Acetaminophen/Codeine Phosphate 1 tab 04/02/19 20:46 Tylenol #3 PO Q6H PRN Pain Albuterol 2.5 mg 04/02/19 20:40 Proventil IH Q4HRT PRN Shortness Of Breath Allopurinol 100 mg 04/04/19 10:00 04/04/19 10:40 Zyloprim PO 100 mg QDAY RADHA Administration Amlodipine Besylate 5 mg 04/03/19 10:00 04/04/19 10:55 Norvasc PO Not Given DAILY RADHA Aspirin 81 mg 04/03/19 10:00 04/03/19 10:49 Baby Aspirin PO 81 mg QDAY RADHA Administration Fluticasone Propionate 50 mcg 04/03/19 10:00 04/04/19 10:39 Flonase NS 50 mcg QDAY RADHA Administration Sodium Bicarbonate 75 meq/ 1,075 mls @ 100 mls/hr 04/04/19 04:00 04/04/19 04:09 Sodium Chloride IV 100 mls/hr DIRECT RADHA Administration Ondansetron HCl 4 mg 04/02/19 20:40 Zofran IV Q8H PRN Nausea And Vomiting Oxycodone/Acetaminophen 1 tab 04/02/19 20:40 Percocet 5/325 PO Q6H PRN Pain, Moderate (4-6) Sodium Chloride 10 ml 04/02/19 22:00 04/04/19 10:40 Sodium Chloride Flush Syringe 10 Ml IV 10 ml BID RADHA Administration Sodium Chloride 10 ml 04/02/19 20:40 Sodium Chloride Flush Syringe 10 Ml IV PRN PRN LINE FLUSH Nutrition/Malnutrition Assess - Dietary Evaluation Nutrition/Malnutrition Findings: Nutrition Notes Start: 04/04/19 12:33 Freq: Status: Active Protocol: Document 04/04/19 12:33 OH (Rec: 04/04/19 12:43 OH [id number]) Nutrition Notes Need for Assessment generated from: rn l and d Initial or Follow up Assessment Current Diagnosis Sepsis,Hypertension, Malnutrition Other Pertinent Diagnosis chronic lymphocytic leukemia Current Diet renal diet Labs/Tests Reviewed Pertinent Medications Reviewed Height 5 ft 4 in Weight 53.3 kg [place] Body Weight (kg) 54.54 BMI 20.1 Intake Prior to Admission Fair Weight Status Appropriate 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 Pt. reports she hasn't been experiencing any n/v/ diarrhea. She is consuming ~30 % of her meals. Pt. is open to trying ONS. Pt. reports 25# wt loss in recent 3-6 months. Percent of energy/protein needs met: 30/15% Burn Absent Trauma Absent GI Symptoms None Current % PO Fair (50-74%) Energy Intake (severe) < or equal to 50% Estimated Energy Requirement > or equal to 5 days #1 Nutrition Diagnosis Inadequate oral intake Etiology poor appetite As Evidenced by Signs and Symptoms wt loss; consuming <75% estimated energy needs Is patient on ventilator? No Is Patient Ambulatory and/or Out of Bed No REE-([facility]-confined to bed) 1251.684 Kcal/Kg value to use for calculation 25 Approximate Energy Requirements Using 1333 kcal/Kg Calculation Used for Recommendations Kcal/kg Additional Notes FLUID: 1 ml/kcal PROTEIN: 1-1.2 G/KG (53-63 G/ DAY) Nutrition Intervention Change Diet Order: cont renal diet Add Supplement/Snack (indicate name/kcal nepro bid /protein ) Provides kCal: 850 Provides Protein (gm) 38 Goal #1 Po intake to exceed 75% at meals Goal #2 ONS to be tolerated/consumed BID Anticipated Discharge Needs: unable to determine at this time Follow-Up By: 04/07/19 Additional Comments F/u: tolerance to ONS; PO INTAKE - Attestation Statement I have reviewed and agreed w/ Malnutrition eval & tx plan: Yes
[2019-04-04] MEDS ORDERED: SODIUM PHOSPHATE 30 MMOL in NACL 0.9% 500 ML 500 ML IV ONE (17:00)
[2019-04-04] MEDS: TYLENOL #3 PO PRN (23:14)
[2019-04-05] MEDS: SODIUM CHLORIDE FLUSH SYRINGE 10 ML IV SCH ×3 (00:28→23:29)
[2019-04-05 05:46] LABS: Hematocrit 27.1 % (30.3-42.9); Hemoglobin 8.9 gm/dl (10.1-14.3); Mean Corpuscular HGB Conc 33 % (30-34); Mean Corpuscular Volume 99 fl (79-97); Platelet Count 163 K/mm3 (140-440); Red Blood Count 2.74 M/mm3 (3.65-5.03); Red Cell Distribution Width 15.4 % (13.2-15.2)
[2019-04-05 06:11] LABS: Alanine Aminotransferase 6 units/L (7-56); Albumin 3.6 g/dL (3.9-5); BUN/Creatinine Ratio 32; Blood Urea Nitrogen 32 mg/dL (7-17); Hemolysis Index 32
[2019-04-05 06:24] LABS: Uric Acid 10.3 mg/dL (3.5-7.6)
--- NOTE | 2019-04-05 08:35 | Progress Note ---
Assessment and Plan - Patient Problems (1) Acute kidney failure Current Visit: Yes Status: Acute Plan to address problem: Acute kidney injury prerenal azotemia versus acute tubular necrosis secondary to sepsis and NSAID use. Kidney function is improving. Ultrasound shows increased echogenicity bilaterally and mild prominence collecting systems on the left. Will need urology follow-up as an outpatient. Continue volume repletion. Avoid NSAID use and other nephrotoxins if possible. Follow up electrolytes and renal function. (2) Acidosis, metabolic Current Visit: Yes Status: Acute Plan to address problem: Probably secondary to kidney failure. Continue sodium bicarbonate intravenously (3) Hyponatremia Current Visit: Yes Status: Acute Plan to address problem: Hypovolemic. Continue volume repletion with isotonic saline (4) Hypercalcemia Current Visit: Yes Status: Acute Plan to address problem: Continue volume expansion with isotonic saline. Follow calcium. Check serum intact PTH and vitamin D level (5) Leukocytosis Current Visit: Yes Status: Acute Plan to address problem: Cultures obtained already. Follow-up cultures. Hematology also been consulted to evaluate patient for leukemia. (6) Hyperuricemia Current Visit: Yes Status: Acute Plan to address problem: Primary secondary to leukocytosis. Concerned about tumor lysis syndrome though Patient does not meet strict criteria for the diagnosis. Uric acid improving. Continue sodium bicarbonate IV and allopurinol. Follow-up uric acid. Subjective Date of service: 04/05/19 Principal diagnosis: acute kidney injury, leukocytosis Interval history: patient seen lying in bed. Feels better today. Denies any pain. No nausea or vomiting Objective - Exam Narrative Exam: Elderly, -[place] female lying in bed in no acute distress HEENT: NCAT, pink oral mucous membrane Neck: Supple, no venous distention CVS: S1S2 RRR with no murmur, rub or gallop Chest: Clear to auscultation Abdomen: Protuberant, soft, nontender, no organomegaly, bowel sounds are present Extremities: No edema Neuro: Awake, alert no focal deficits - Vital Signs Vital signs: Vital Signs - 12hr 04/04/19 04/04/19 04/05/19 22:00 23:14 00:14 Temperature Pulse Rate Respiratory 16 16 16 Rate Blood Pressure O2 Sat by Pulse 100 Oximetry 04/05/19 04/05/19 04/05/19 00:38 02:28 07:35 Temperature 97.5 F L 98.0 F Pulse Rate 85 77 79 Respiratory 18 18 Rate Blood Pressure 93/52 105/68 O2 Sat by Pulse 99 100 Oximetry - Lab 04/05/19 05:18 04/05/19 05:18 Most recent lab results Calcium 8.0 mg/dL (8.4-10.2) L D 04/05/19 05:18 Phosphorus 2.40 mg/dL (2.5-4.5) L D 04/04/19 03:47 Magnesium 2.90 mg/dL (1.7-2.3) H 04/02/19 20:52 152.5 mg/dL (0.1-20.0) H 04/03/19 Unknown 12 mmol/L 04/03/19 Unknown Medications & Allergies - Medications Allergies/Adverse Reactions: Allergies No Known Allergies Allergy (Verified 11/09/15 01:46) Home Medications: Home Medications Medication Instructions Recorded Confirmed Last Taken Type RX: Albuterol Sulfate [Ventolin 2 puff IH Q4H PRN 11/04/15 04/03/19 04/02/19 09:00 History HFA] 2puffs RX: Fluticasone [Flonase] 1 spray NS QDAY 11/04/15 04/03/19 04/02/19 10:00 History 1 spray RX: Aspirin [Aspirin BABY CHEW TAB] 81 mg PO QDAY tab.chew 11/09/15 04/03/19 03/31/19 09:00 Rx 81mg RX: Fexofenadine/Pseudoephedrine 1 each PO QDAY 11/09/15 04/03/19 03/31/19 09:00 History [Joyce-D 12 Hour Tablet] 1 amLODIPine [Norvasc] 5 mg PO DAILY 03/04/17 04/03/19 03/31/19 09:00 History 5mg Acetaminophen/Codeine [Tylenol 1 tab PO Q6H PRN #6 tab 04/16/17 04/03/19 03/21/19 09:00 Rx /Codeine # 3 tab] 1 tab traMADol [Ultram] 50 mg PO Q6HR PRN #12 tablet 04/16/17 04/03/19 03/31/19 18:00 Rx 50mg Active Medications: Generic Name Dose Route Start Last Admin Trade Name Freq PRN Reason Stop Dose Admin Acetaminophen 650 mg 04/02/19 20:40 04/04/19 19:33 Tylenol PO 650 mg Q4H PRN Administration Pain MILD(1-3)/Fever >100.5/COX Acetaminophen/Codeine Phosphate 1 tab 04/02/19 20:46 04/04/19 23:14 Tylenol #3 PO 1 tab Q6H PRN Administration Pain Albuterol 2.5 mg 04/02/19 20:40 Proventil IH Q4HRT PRN Shortness Of Breath Allopurinol 100 mg 04/04/19 10:00 04/04/19 10:40 Zyloprim PO 100 mg QDAY RADHA Administration Amlodipine Besylate 5 mg 04/03/19 10:00 04/04/19 10:55 Norvasc PO Not Given DAILY RADHA Aspirin 81 mg 04/03/19 10:00 04/04/19 10:40 Baby Aspirin PO 81 mg QDAY RADHA Administration Fluticasone Propionate 50 mcg 04/03/19 10:00 04/04/19 10:39 Flonase NS 50 mcg QDAY RADHA Administration Sodium Bicarbonate 75 meq/ 1,075 mls @ 100 mls/hr 04/04/19 04:00 04/04/19 16:36 Sodium Chloride IV 100 mls/hr DIRECT RADAH Administration Ondansetron HCl 4 mg 04/02/19 20:40 Zofran IV Q8H PRN Nausea And Vomiting Oxycodone/Acetaminophen 1 tab 04/02/19 20:40 Percocet 5/325 PO Q6H PRN Pain, Moderate (4-6) Sodium Chloride 10 ml 04/02/19 22:00 04/05/19 00:28 Sodium Chloride Flush Syringe 10 Ml IV Not Given BID RADHA Sodium Chloride 10 ml 04/02/19 20:40 Sodium Chloride Flush Syringe 10 Ml IV PRN PRN LINE FLUSH
[2019-04-05] MEDS: SODIUM BICARBONATE 75 MEQ in NACL 0.45% 1000 ML 1,000 ML IV SCH (08:58)
[2019-04-05] MEDS: FLONASE NS SCH (09:01)
[2019-04-05] MEDS: NORVASC PO SCH (09:02)
[2019-04-05] MEDS: BABY ASPIRIN PO SCH (09:02)
[2019-04-05] MEDS: ZYLOPRIM PO SCH (09:03)
[2019-04-05] MEDS ORDERED: K-DUR PO ONE (10:18)
--- NOTE | 2019-04-05 13:04 | Progress Note ---
Assessment and Plan Assessment and plan: 69 YO Female with HTN, Malnutrition, OA, Asthma, Lumbar Pain presents to ED for evaluation. PT states that she has experienced shortness of breath, generalized weakness, and chest discomfort over the past 2 weeks, with worsening symptoms over the past 3 days. Pt acknowledges decreased oral intake, early satiety, 25lbs unintentional weight loss, night sweats, chest discomfort, and decreased exercise tolerance. Pt transported to [facility] via private vehicle. Pt seen and evaluated in ED and found to have symptoms consistent with CLL, as well as ARF, Acidosis, Severe Malnutrution, and Hyponatremia. Hematology consulted in ED. Nephrology consulted in ED. Pt admitted to [facility]AS[facility] unit and initiated on IVF resus citation therapy. Prior admission on 11/09/15 reviewed. All listed medication reconciled at time of admission. PCP: Dr. Tyron Sung CT Chest: With severe adenopathy throughout much of the upper abdominal axillary area consistent with leukemia Leukemia; hematology/oncology consulted and did recommended to do flow cytometry Acute Kidney Injury secondary to Tubular Necrosis; resolved Severe Protein Calorie Malnutrition- Pt. reports 25 ib wt loss in recent 3-6 months. Metabolic Acidosis; resolved Hyponatremia secondary SIDH; resolving HyperCalcemia; improving Uric Acidosis secondary tumor Lysis syndrome; uric acid is trending down - Continue supportive care, IVF, Bicarb drip, allopurinol. - Monitor Uric Acid, calcium Check flow cytometry, peripheral smear, Vitamin D and PTH DVT/GI prophylaxis Disposition; continue inpatient care. patient's TLS is improving and will get the flow cytometry. History Interval history: Patient was seen and alert this morning. Patient was alert and oriented, patient stated she is feeling better today. Hospitalist Physical - Physical exam Narrative exam: Not in cardiopulmonary distress. The patient appeared well nourished and normally developed. Vital signs as documented. Head exam is unremarkable. No scleral icterus . Neck is without jugular venous distension, thyromegaly, or carotid bruits. Lungs are clear to auscultation. Cardiac exam reveals regular rate and Rhythm. First and second heart sounds normal. No murmurs, rubs or gallops. Abdominal exam reveals normal bowel sounds, no masses, no organomegaly and no aortic enlargement. Extremities are nonedematous and both femoral and pedal pulses are normal. 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 No focal weakness. - Constitutional Vitals: Temp Pulse Resp BP Pulse Ox 98.0 F 79 18 105/68 100 04/05/19 07:35 04/05/19 07:35 04/05/19 07:35 04/05/19 07:35 04/05/19 08:36 General appearance: Present: mild distress, cachectic Results - Labs CBC & Chem 7: 04/05/19 05:18 04/05/19 05:18 Labs: Laboratory Last Values WBC 37.2 K/mm3 (4.5-11.0) H 04/05/19 05:18 RBC 2.74 M/mm3 (3.65-5.03) L 04/05/19 05:18 Hgb 8.9 gm/dl (10.1-14.3) L 04/05/19 05:18 Hct 27.1 % (30.3-42.9) L 04/05/19 05:18 MCV 99 fl (79-97) H 04/05/19 05:18 MCH 32 pg (28-32) 04/05/19 05:18 MCHC 33 % (30-34) 04/05/19 05:18 RDW 15.4 % (13.2-15.2) H 04/05/19 05:18 Plt Count 163 K/mm3 (140-440) 04/05/19 05:18 Lymph % (Auto) Civil Engineering Specialist 04/04/19 03:47 Lymph # Civil Engineering Specialist 04/04/19 03:47 Add Manual Diff Complete 04/04/19 03:47 Total Counted 100 04/04/19 03:47 Seg Neutrophils % Civil Engineering Specialist 04/04/19 03:47 Seg Neuts % (Manual) 22.0 % (40.0-70.0) L 04/04/19 03:47 0 % 04/04/19 03:47 74.0 % (13.4-35.0) H 04/04/19 03:47 Reactive Lymphs % (Man) 2.0 % 04/04/19 03:47 1.0 % (0.0-7.3) 04/04/19 03:47 0 % (0.0-4.3) 04/04/19 03:47 0 % (0.0-1.8) 04/04/19 03:47 1.0 % 04/04/19 03:47 0 % 04/04/19 03:47 0 % 04/04/19 03:47 0 % 04/04/19 03:47 Nucleated RBC % Not Reportable 04/04/19 03:47 Seg Neutrophils # Man 11.1 K/mm3 (1.8-7.7) H 04/04/19 03:47 Band Neutrophils # 0.0 K/mm3 04/04/19 03:47 37.2 K/mm3 (1.2-5.4) H 04/04/19 03:47 Abs React Lymphs (Man) 1.0 K/mm3 04/04/19 03:47 0.5 K/mm3 (0.0-0.8) 04/04/19 03:47 0.0 K/mm3 (0.0-0.4) 04/04/19 03:47 0.0 K/mm3 (0.0-0.1) 04/04/19 03:47 0.5 K/mm3 04/04/19 03:47 0.0 K/mm3 04/04/19 03:47 0.0 K/mm3 04/04/19 03:47 Blast Cells # 0.0 K/mm3 04/04/19 03:47 Pathologist Review 04/02/19 19:03 WBC Morphology Not Reportable 04/04/19 03:47 WBC Morphology TNR 04/04/19 03:47 Hypersegmented Neuts Not Reportable 04/04/19 03:47 Hyposegmented Neuts Not Reportable 04/04/19 03:47 Hypogranular Neuts Not Reportable 04/04/19 03:47 2+ 04/04/19 03:47 Not Reportable 04/04/19 03:47 Not Reportable 04/04/19 03:47 Not Reportable 04/04/19 03:47 Not Reportable 04/04/19 03:47 Not Reportable 04/04/19 03:47 Cons 04/04/19 03:47 Not Reportable 04/04/19 03:47 Plt Clumps, EDTA Not Reportable 04/04/19 03:47 Not Reportable 04/04/19 03:47 Not Reportable 04/04/19 03:47 Not Reportable 04/04/19 03:47 Plt Morphology Comment Not Reportable 04/04/19 03:47 RBC Morphology Not Reportable 04/04/19 03:47 Dimorphic RBCs Not Reportable 04/04/19 03:47 Not Reportable 04/04/19 03:47 1+ 04/04/19 03:47 Not Reportable 04/04/19 03:47 Not Reportable 04/04/19 03:47 Not Reportable 04/04/19 03:47 Not Reportable 04/04/19 03:47 Not Reportable 04/04/19 03:47 Not Reportable 04/04/19 03:47 Not Reportable 04/04/19 03:47 Not Reportable 04/04/19 03:47 Few 04/04/19 03:47 Not Reportable 04/04/19 03:47 Not Reportable 04/04/19 03:47 Not Reportable 04/04/19 03:47 Not Reportable 04/04/19 03:47 Not Reportable 04/04/19 03:47 Not Reportable 04/04/19 03:47 Not Reportable 04/04/19 03:47 Not Reportable 04/04/19 03:47 Acanthocytes (Spur) Not Reportable 04/04/19 03:47 Rouleaux Not Reportable 04/04/19 03:47 Not Reportable 04/04/19 03:47 Not Reportable 04/04/19 03:47 Not Reportable 04/04/19 03:47 Not Reportable 04/04/19 03:47 Hem Pathologist Commnt No 04/04/19 03:47 Sodium 143 mmol/L (137-145) 04/05/19 05:18 Potassium 3.4 mmol/L (3.6-5.0) L 04/05/19 05:18 Chloride 105.0 mmol/L (98-107) 04/05/19 05:18 Carbon Dioxide 28 mmol/L (22-30) 04/05/19 05:18 13 mmol/L 04/05/19 05:18 BUN 32 mg/dL (7-17) H 04/05/19 05:18 1.0 mg/dL (0.7-1.2) 04/05/19 05:18 Estimated GFR > 60 ml/min 04/05/19 05:18 32 % 04/05/19 05:18 Glucose 114 mg/dL (65-100) H 04/05/19 05:18 10.3 mg/dL (3.5-7.6) H 04/05/19 05:18 Calcium 8.0 mg/dL (8.4-10.2) L D 04/05/19 05:18 Phosphorus 2.40 mg/dL (2.5-4.5) L D 04/04/19 03:47 Magnesium 2.90 mg/dL (1.7-2.3) H 04/02/19 20:52 < 0.20 mg/dL (0.1-1.2) 04/05/19 05:18 AST 11 units/L (5-40) 04/05/19 05:18 ALT 6 units/L (7-56) L 04/05/19 05:18 44 units/L (35-129) 04/05/19 05:18 262 units/L (91-180) H 04/02/19 20:52 < 0.010 ng/mL (0.00-0.029) 04/02/19 19:03 5.8 g/dL (6.3-8.2) L D 04/05/19 05:18 3.6 g/dL (3.9-5) L 04/05/19 05:18 1.6 % 04/05/19 05:18 Yellow (Yellow) 04/04/19 03:05 Clear (Clear) 04/04/19 03:05 6.0 (5.0-7.0) 04/04/19 03:05 Ur Specific [place] 1.015 (1.003-1.030) 04/04/19 03:05 <15 mg/dl mg/dL (Negative) 04/04/19 03:05 Neg mg/dL (Negative) 04/04/19 03:05 Neg mg/dL (Negative) 04/04/19 03:05 Sm (Negative) 04/04/19 03:05 Neg (Negative) 04/04/19 03:05 Neg (Negative) 04/04/19 03:05 < 2.0 mg/dL (<2.0) 04/04/19 03:05 Ur Leukocyte Esterase Neg (Negative) 04/04/19 03:05 < 1.0 /HPF (0.0-6.0) 04/04/19 03:05 3.0 /HPF (0.0-6.0) 04/04/19 03:05 U Epithel Cells (Auto) < 1.0 /HPF (0-13.0) 04/04/19 03:05 152.5 mg/dL (0.1-20.0) H 04/03/19 Unknown 12 mmol/L 04/03/19 Unknown Active Medications - Current Medications Current Medications: Generic Name Dose Route Start Last Admin Trade Name Freq PRN Reason Stop Dose Admin Acetaminophen 650 mg 04/02/19 20:40 04/04/19 19:33 Tylenol PO 650 mg Q4H PRN Administration Pain MILD(1-3)/Fever >100.5/COX Acetaminophen/Codeine Phosphate 1 tab 04/02/19 20:46 04/04/19 23:14 Tylenol #3 PO 1 tab Q6H PRN Administration Pain Albuterol 2.5 mg 04/02/19 20:40 Proventil IH Q4HRT PRN Shortness Of Breath Allopurinol 100 mg 04/04/19 10:00 04/05/19 09:03 Zyloprim PO 100 mg QDAY RADHA Administration Amlodipine Besylate 5 mg 04/03/19 10:00 04/05/19 09:02 Norvasc PO 5 mg DAILY RADHA Administration Aspirin 81 mg 04/03/19 10:00 04/05/19 09:02 Baby Aspirin PO 81 mg QDAY RADHA Administration Fluticasone Propionate 50 mcg 04/03/19 10:00 04/05/19 09:01 Flonase NS 50 mcg QDAY RADHA Administration Sodium Bicarbonate 75 meq/ 1,075 mls @ 100 mls/hr 04/04/19 04:00 04/05/19 08:58 Sodium Chloride IV 100 mls/hr DIRECT RADHA Administration Ondansetron HCl 4 mg 04/02/19 20:40 Zofran IV Q8H PRN Nausea And Vomiting Oxycodone/Acetaminophen 1 tab 04/02/19 20:40 Percocet 5/325 PO Q6H PRN Pain, Moderate (4-6) Sodium Chloride 10 ml 04/02/19 22:00 04/05/19 09:02 Sodium Chloride Flush Syringe 10 Ml IV 10 ml BID RADHA Administration Sodium Chloride 10 ml 04/02/19 20:40 Sodium Chloride Flush Syringe 10 Ml IV PRN PRN LINE FLUSH Nutrition/Malnutrition Assess - Dietary Evaluation Nutrition/Malnutrition Findings: Nutrition Notes Start: 04/04/19 12:33 Freq: Status: Active Protocol: Document 04/04/19 12:33 OH (Rec: 04/04/19 12:43 OH [id number]) Nutrition Notes Need for 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 Pt. lying in bed. Pt. reports she hasn't been experiencing any n/v/ diarrhea. She is consuming ~30 % of her meals. Pt. is open to trying ONS. Pt. reports 25# wt loss in recent 3-6 months. Percent of energy/protein needs met: 30/15% Burn Absent Trauma Absent GI Symptoms None Current % PO Fair (50-74%) Energy Intake (severe) < or equal to 50% Estimated Energy Requirement > or equal to 5 days #1 Nutrition Diagnosis Inadequate oral intake Etiology poor appetite As Evidenced by Signs and Symptoms wt loss; consuming <75% estimated energy needs Is patient on ventilator? No Is Patient Ambulatory and/or Out of Bed No REE-([facility]-confined to bed) 1251.684 Kcal/Kg value to use for calculation 25 Approximate Energy Requirements Using 1333 kcal/Kg Calculation Used for Recommendations Kcal/kg Additional Notes FLUID: 1 ml/kcal PROTEIN: 1-1.2 G/KG (53-63 G/ DAY) Nutrition Intervention Change Diet Order: cont renal diet Add Supplement/Snack (indicate name/kcal nepro bid /protein ) Provides kCal: 850 Provides Protein (gm) 38 Goal #1 Po intake to exceed 75% at meals Goal #2 ONS to be tolerated/consumed BID Anticipated Discharge Needs: unable to determine at this time Follow-Up By: 04/07/19 Additional Comments F/u: tolerance to ONS; PO INTAKE
[2019-04-05] MEDS: PERCOCET 5/325 PO PRN ×2 (17:49→22:50)
[2019-04-05] MEDS: NACL 0.9% 1000 ML 1,000 ML IV SCH (18:04)
[2019-04-05] MEDS ORDERED: MIRALAX 3350 PO PRN (22:53)
[2019-04-05] MEDS: COLACE PO SCH (23:21)
[2019-04-06] MEDS: TYLENOL #3 PO PRN (02:44)
[2019-04-06] MEDS: NACL 0.9% 1000 ML 1,000 ML IV SCH (06:15)
[2019-04-06 06:59] LABS: BUN/Creatinine Ratio 22; Blood Urea Nitrogen 20 mg/dL (7-17); Calcium 8.1 mg/dL (8.4-10.2); Hemolysis Index 19; Uric Acid 8.4 mg/dL (3.5-7.6)
[2019-04-06 07:15] LABS: Hematocrit 26.1 % (30.3-42.9); Hemoglobin 8.5 gm/dl (10.1-14.3); Mean Corpuscular HGB Conc 33 % (30-34); Mean Corpuscular Volume 99 fl (79-97); Platelet Count 158 K/mm3 (140-440); Red Blood Count 2.65 M/mm3 (3.65-5.03); Red Cell Distribution Width 15.5 % (13.2-15.2)
[2019-04-06] MEDS: ZYLOPRIM PO SCH (09:38)
[2019-04-06] MEDS: BABY ASPIRIN PO SCH (09:39)
[2019-04-06] MEDS: COLACE PO SCH (09:39)
[2019-04-06] MEDS: SODIUM CHLORIDE FLUSH SYRINGE 10 ML IV SCH (09:40)
[2019-04-06] MEDS: FLONASE NS SCH (09:40)
[2019-04-06] MEDS: NORVASC PO SCH (09:40)
[2019-04-06 10:02] LABS: Basophils % (Manual) 0 % (0.0-1.8); Total Cells Counted 100
[2019-04-06 10:03] LABS: Platelet Estimate Consistent w Auto; RBC Morphology Normal
--- NOTE | 2019-04-06 11:28 | Progress Note ---
Assessment and Plan Assessment and plan: 69 YO Female with HTN, Malnutrition, OA, Asthma, Lumbar Pain presents to ED for evaluation. PT states that she has experienced shortness of breath, generalized weakness, and chest discomfort over the past 2 weeks, with worsening symptoms over the past 3 days. Pt acknowledges decreased oral intake, early satiety, 25lbs unintentional weight loss, night sweats, chest discomfort, and decreased exercise tolerance. Pt transported to [facility] via private vehicle. Pt seen and evaluated in ED and found to have symptoms consistent with CLL, as well as ARF, Acidosis, Severe Malnutrution, and Hyponatremia. Hematology consulted in ED. Nephrology consulted in ED. Pt admitted to [facility]ASIA unit and initiated on IVF resus citation therapy. Prior admission on 11/09/15 reviewed. All listed medication reconciled at time of admission. PCP: Dr. Tyron Sung CT Chest: With severe adenopathy throughout much of the upper abdominal axillary area consistent with leukemia Leukemia; hematology/oncology consulted and did recommended to do flow cytometry - Flow cytometry showed CLL - discussed with Dr morgan and said will follow in the office Acute Kidney Injury secondary to Tubular Necrosis; resolved Severe Protein Calorie Malnutrition- Pt. reports 25 ib wt loss in recent 3-6 months. Metabolic Acidosis; resolved Hyponatremia secondary SIDH; resolving HyperCalcemia; improving Uric Acidosis secondary tumor Lysis syndrome; uric acid is trending down - Continue supportive care, IVF, Bicarb drip, allopurinol. - Monitor Uric Acid, calcium Check, peripheral smear, Vitamin D and PTH DVT/GI prophylaxis Disposition; will DC once cleared by nephrology. History Interval history: Patient was seen and alert this morning. Patient was alert and oriented, patient stated she is feeling better today. Hospitalist Physical - Physical exam Narrative exam: Not in cardiopulmonary distress. The patient appeared well nourished and normally developed. Vital signs as documented. Head exam is unremarkable. No scleral icterus . Neck is without jugular venous distension, thyromegaly, or carotid bruits. Lungs are clear to auscultation. Cardiac exam reveals regular rate and Rhythm. First and second heart sounds normal. No murmurs, rubs or gallops. Abdominal exam reveals normal bowel sounds, no masses, no organomegaly and no aortic enlargement. Extremities are nonedematous and both femoral and pedal pulses are normal. 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 No focal weakness. - Constitutional Vitals: Temp Pulse Resp BP Pulse Ox 98.0 F 77 18 87/53 100 04/06/19 07:42 04/06/19 07:42 04/06/19 07:42 04/06/19 07:42 04/06/19 07:55 General appearance: Present: mild distress, cachectic Results - Labs CBC & Chem 7: 04/06/19 06:06 04/06/19 06:06 Labs: Laboratory Last Values WBC 36.3 K/mm3 (4.5-11.0) H 04/06/19 06:06 RBC 2.65 M/mm3 (3.65-5.03) L 04/06/19 06:06 Hgb 8.5 gm/dl (10.1-14.3) L 04/06/19 06:06 Hct 26.1 % (30.3-42.9) L 04/06/19 06:06 MCV 99 fl (79-97) H 04/06/19 06:06 MCH 32 pg (28-32) 04/06/19 06:06 MCHC 33 % (30-34) 04/06/19 06:06 RDW 15.5 % (13.2-15.2) H 04/06/19 06:06 Plt Count 158 K/mm3 (140-440) 04/06/19 06:06 Lymph % (Auto) Route Salesperson 04/06/19 06:06 Lymph # Route Salesperson 04/06/19 06:06 Add Manual Diff Complete 04/06/19 06:06 Total Counted 100 04/06/19 06:06 Seg Neutrophils % Route Salesperson 04/06/19 06:06 Seg Neuts % (Manual) 27.0 % (40.0-70.0) L 04/06/19 06:06 0 % 04/06/19 06:06 69.0 % (13.4-35.0) H 04/06/19 06:06 Reactive Lymphs % (Man) 0 % 04/06/19 06:06 3.0 % (0.0-7.3) 04/06/19 06:06 1.0 % (0.0-4.3) 04/06/19 06:06 0 % (0.0-1.8) 04/06/19 06:06 0 % 04/06/19 06:06 0 % 04/06/19 06:06 0 % 04/06/19 06:06 0 % 04/06/19 06:06 Nucleated RBC % Not Reportable 04/06/19 06:06 Seg Neutrophils # Man 9.8 K/mm3 (1.8-7.7) H 04/06/19 06:06 Band Neutrophils # 0.0 K/mm3 04/06/19 06:06 25.0 K/mm3 (1.2-5.4) H 04/06/19 06:06 Abs React Lymphs (Man) 0.0 K/mm3 04/06/19 06:06 1.1 K/mm3 (0.0-0.8) H 04/06/19 06:06 0.4 K/mm3 (0.0-0.4) 04/06/19 06:06 0.0 K/mm3 (0.0-0.1) 04/06/19 06:06 0.0 K/mm3 04/06/19 06:06 0.0 K/mm3 04/06/19 06:06 0.0 K/mm3 04/06/19 06:06 Blast Cells # 0.0 K/mm3 04/06/19 06:06 Pathologist Review 04/02/19 19:03 WBC Morphology Not Reportable 04/06/19 06:06 Hypersegmented Neuts Not Reportable 04/06/19 06:06 Hyposegmented Neuts Not Reportable 04/06/19 06:06 Hypogranular Neuts Not Reportable 04/06/19 06:06 Not Reportable 04/06/19 06:06 Not Reportable 04/06/19 06:06 Not Reportable 04/06/19 06:06 Not Reportable 04/06/19 06:06 Not Reportable 04/06/19 06:06 Not Reportable 04/06/19 06:06 Consistent w auto 04/06/19 06:06 Not Reportable 04/06/19 06:06 Plt Clumps, EDTA Not Reportable 04/06/19 06:06 Not Reportable 04/06/19 06:06 Not Reportable 04/06/19 06:06 Not Reportable 04/06/19 06:06 Plt Morphology Comment Not Reportable 04/06/19 06:06 RBC Morphology Normal 04/06/19 06:06 Dimorphic RBCs Not Reportable 04/06/19 06:06 Not Reportable 04/06/19 06:06 Not Reportable 04/06/19 06:06 Not Reportable 04/06/19 06:06 Not Reportable 04/06/19 06:06 Not Reportable 04/06/19 06:06 Not Reportable 04/06/19 06:06 Not Reportable 04/06/19 06:06 Not Reportable 04/06/19 06:06 Not Reportable 04/06/19 06:06 Not Reportable 04/06/19 06:06 Not Reportable 04/06/19 06:06 Not Reportable 04/06/19 06:06 Not Reportable 04/06/19 06:06 Not Reportable 04/06/19 06:06 Not Reportable 04/06/19 06:06 Not Reportable 04/06/19 06:06 Not Reportable 04/06/19 06:06 Not Reportable 04/06/19 06:06 Not Reportable 04/06/19 06:06 Acanthocytes (Spur) Not Reportable 04/06/19 06:06 Rouleaux Not Reportable 04/06/19 06:06 Not Reportable 04/06/19 06:06 Not Reportable 04/06/19 06:06 Not Reportable 04/06/19 06:06 Not Reportable 04/06/19 06:06 Hem Pathologist Commnt No 04/06/19 06:06 Sodium 141 mmol/L (137-145) 04/06/19 06:06 Potassium 4.1 mmol/L (3.6-5.0) D 04/06/19 06:06 Chloride 104.8 mmol/L (98-107) 04/06/19 06:06 Carbon Dioxide 27 mmol/L (22-30) 04/06/19 06:06 13 mmol/L 04/06/19 06:06 BUN 20 mg/dL (7-17) H 04/06/19 06:06 0.9 mg/dL (0.7-1.2) 04/06/19 06:06 Estimated GFR > 60 ml/min 04/06/19 06:06 22 % 04/06/19 06:06 Glucose 110 mg/dL (65-100) H 04/06/19 06:06 8.4 mg/dL (3.5-7.6) H 04/06/19 06:06 Calcium 8.1 mg/dL (8.4-10.2) L 04/06/19 06:06 Phosphorus 1.90 mg/dL (2.5-4.5) L 04/06/19 06:06 Magnesium 1.80 mg/dL (1.7-2.3) 04/06/19 06:06 < 0.20 mg/dL (0.1-1.2) 04/05/19 05:18 AST 11 units/L (5-40) 04/05/19 05:18 ALT 6 units/L (7-56) L 04/05/19 05:18 44 units/L (35-129) 04/05/19 05:18 262 units/L (91-180) H 04/02/19 20:52 < 0.010 ng/mL (0.00-0.029) 04/02/19 19:03 5.8 g/dL (6.3-8.2) L D 04/05/19 05:18 3.6 g/dL (3.9-5) L 04/05/19 05:18 1.6 % 04/05/19 05:18 Yellow (Yellow) 04/04/19 03:05 Clear (Clear) 04/04/19 03:05 6.0 (5.0-7.0) 04/04/19 03:05 Ur Specific [place] 1.015 (1.003-1.030) 04/04/19 03:05 <15 mg/dl mg/dL (Negative) 04/04/19 03:05 Neg mg/dL (Negative) 04/04/19 03:05 Neg mg/dL (Negative) 04/04/19 03:05 Sm (Negative) 04/04/19 03:05 Neg (Negative) 04/04/19 03:05 Neg (Negative) 04/04/19 03:05 < 2.0 mg/dL (<2.0) 04/04/19 03:05 Ur Leukocyte Esterase Neg (Negative) 04/04/19 03:05 < 1.0 /HPF (0.0-6.0) 04/04/19 03:05 3.0 /HPF (0.0-6.0) 04/04/19 03:05 U Epithel Cells (Auto) < 1.0 /HPF (0-13.0) 04/04/19 03:05 152.5 mg/dL (0.1-20.0) H 04/03/19 Unknown 12 mmol/L 04/03/19 Unknown Flow Intrp 16+ Markers Scanned into [facility] 04/04/19 09:42 Flow Cytometry Interp Scanned into [facility] 04/04/19 09:42 Flow Cytometry Interp Scanned into [facility] 04/04/19 09:42 Active Medications - Current Medications Current Medications: Generic Name Dose Route Start Last Admin Trade Name Freq PRN Reason Stop Dose Admin Acetaminophen 650 mg 04/02/19 20:40 04/04/19 19:33 Tylenol PO 650 mg Q4H PRN Administration Pain MILD(1-3)/Fever >100.5/COX Acetaminophen/Codeine Phosphate 1 tab 04/02/19 20:46 04/06/19 02:44 Tylenol #3 PO 1 tab Q6H PRN Administration Pain Albuterol 2.5 mg 04/02/19 20:40 Proventil IH Q4HRT PRN Shortness Of Breath Allopurinol 100 mg 04/04/19 10:00 04/06/19 09:38 Zyloprim PO 100 mg QDAY RADHA Administration Amlodipine Besylate 5 mg 04/03/19 10:00 04/06/19 09:40 Norvasc PO Not Given DAILY RADHA Aspirin 81 mg 04/03/19 10:00 04/06/19 09:39 Baby Aspirin PO 81 mg QDAY RADHA Administration Docusate Sodium 100 mg 04/05/19 23:00 04/06/19 09:39 Colace PO 100 mg BID RADHA Administration Fluticasone Propionate 50 mcg 04/03/19 10:00 04/06/19 09:40 Flonase NS 50 mcg QDAY RADHA Administration Sodium Chloride 1,000 mls @ 75 mls/hr 04/05/19 18:00 04/06/19 06:15 Nacl 0.9% 1000 Ml IV 75 mls/hr DIRECT RADHA Administration Ondansetron HCl 4 mg 04/02/19 20:40 04/05/19 23:28 Zofran IV 4 mg Q8H PRN Administration Nausea And Vomiting Oxycodone/Acetaminophen 1 tab 04/02/19 20:40 04/05/19 22:50 Percocet 5/325 PO 1 tab Q6H PRN Administration Pain, Moderate (4-6) Polyethylene Glycol 17 gm 04/05/19 22:53 04/05/19 23:28 Miralax 3350 PO 17 gm QDAY PRN Administration Constipation Sodium Chloride 10 ml 04/02/19 22:00 04/06/19 09:40 Sodium Chloride Flush Syringe 10 Ml IV 10 ml BID RADHA Administration Sodium Chloride 10 ml 04/02/19 20:40 Sodium Chloride Flush Syringe 10 Ml IV PRN PRN LINE FLUSH Nutrition/Malnutrition Assess - Dietary Evaluation Nutrition/Malnutrition Findings: Nutrition Notes Start: 04/04/19 12:33 Freq: Status: Active Protocol: Document 04/04/19 12:33 OH (Rec: 04/04/19 12:43 OH [id number]) Nutrition Notes Need for 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 Pt. reports she hasn't been experiencing any n/v/ diarrhea. She is consuming ~30 % of her meals. Pt. is open to trying ONS. Pt. reports 25# wt loss in recent 3-6 months. Percent of energy/protein needs met: 30/15% Burn Absent Trauma Absent GI Symptoms None Current % PO Fair (50-74%) Energy Intake (severe) < or equal to 50% Estimated Energy Requirement > or equal to 5 days #1 Nutrition Diagnosis Inadequate oral intake Etiology poor appetite As Evidenced by Signs and Symptoms wt loss; consuming <75% estimated energy needs Is patient on ventilator? No Is Patient Ambulatory and/or Out of Bed No REE-([facility]-confined to bed) 1251.684 Kcal/Kg value to use for calculation 25 Approximate Energy Requirements Using 1333 kcal/Kg Calculation Used for Recommendations Kcal/kg Additional Notes FLUID: 1 ml/kcal PROTEIN: 1-1.2 G/KG (53-63 G/ DAY) Nutrition Intervention Change Diet Order: cont renal diet Add Supplement/Snack (indicate name/kcal nepro bid /protein ) Provides kCal: 850 Provides Protein (gm) 38 Goal #1 Po intake to exceed 75% at meals Goal #2 ONS to be tolerated/consumed BID Anticipated Discharge Needs: unable to determine at this time Follow-Up By: 04/07/19 Additional Comments F/u: tolerance to ONS; PO INTAKE
--- NOTE | 2019-04-06 13:13 | Discharge Summary ---
Providers - Providers Date of Admission: 04/02/19 20:41 Attending physician: GREGORY HANNA MD 04/02/19 20:47 Consult to Physician [CONS] Routine Comment: called offfice/ layla Consulting Provider: VITALY BARNETT Physician Instructions: Reason For Exam: ARF 04/05/19 06:12 Consult to Physician [CONS] Routine Comment: called office/ layla Consulting Provider: OLY VARELA Physician Instructions: Reason For Exam: lUEKEMIA 04/05/19 08:29 Physical Therapy Evaluation and Treat [CONS] Routine Comment: Reason For Exam: Weakness Primary care physician: OSCAR RIOS Hospitalization Reason for admission: CLL, tumor lysis syndrome, ARF Condition: Stable Pertinent studies: Peripheral smear; CLL Head CT Renal ultrasound, chest x-ray Hospital course: 69 YO Female with HTN, Malnutrition, OA, Asthma, Lumbar Pain presents to ED for evaluation. PT states that she has experienced shortness of breath, generalized weakness, and chest discomfort over the past 2 weeks, with worsening symptoms over the past 3 days. Pt acknowledges decreased oral intake, early satiety, 25lbs unintentional weight loss, night sweats, chest discomfort, and decreased exercise tolerance. Pt transported to [facility] via private vehicle. Pt seen and evaluated in ED and found to have symptoms consistent with CLL, as well as ARF, Acidosis, Severe Malnutrution, and Hyponatremia. Hematology consulted in ED. Nephrology consulted in ED. Pt admitted to [facility] unit and initiated on IVF resuscitation therapy. Prior admission on 11/09/15 reviewed. All listed medication reconciled at time of admission. PCP: Dr. Oscar Rios. Patient was admitted to the floor patient was treated with IV fluids, sodium bicarbonate, allopurinol and nephrology was consulted. Patient's acute renal failure resolved, WBC trended down from 50,000-36,000, uric acid trended down from 17-8.4. Electrolyte abnormalities corrected. Patient's symptoms resolved. Patient is doing well. I have talked with Dr Moore on the phone and told him about the patient's condition and workup. He recommended patient can be discharged and followed in his office on 04/08/2019. He gave me a phone number to call his office [phone], #was given to the patient and will make an appointment. Discussed with nephrology and he recommend discharge with allopurinol. I talked with the pathologist and flow cytometry showed CLL. Patient is hemodynamically stable at the time of discharge, patient was given appropriate medication scripts of the time of discharge. I have explained that the disease condition in detail with the patient. Disposition: DC-01 TO HOME OR SELFCARE Time spent for discharge: 32 minutes - Discharge Diagnoses (1) ARF (acute renal failure) with tubular necrosis Status: Acute (2) Acidosis Status: Acute (3) Acidosis, metabolic Status: Acute (4) CLL (chronic lymphocytic leukemia) Status: Acute (5) Hypercalcemia Status: Acute (6) Hyperuricemia Status: Acute (7) Hyponatremia Status: Acute (8) Hyponatremia syndrome Status: Acute (9) SOB (shortness of breath) Status: Acute (10) Severe malnutrition Status: Acute Core Measure Documentation - Palliative Care Palliative Care/ Comfort Measures: Not Applicable - Core Measures Any of the following diagnoses?: none Exam - Physical Exam Narrative exam: Not in cardiopulmonary distress. The patient appeared well nourished and normally developed. Vital signs as documented. Head exam is unremarkable. No scleral icterus . Neck is without jugular venous distension, thyromegaly, or carotid bruits. Lungs are clear to auscultation. Cardiac exam reveals regular rate and Rhythm. First and second heart sounds nor mal. No murmurs, rubs or gallops. Abdominal exam reveals normal bowel sounds, no masses, no organomegaly and no aortic enlargement. Extremities are nonedematous and both femoral and pedal pulses are normal. [employer]CH[employer]: Alert and oriented 3. No focal weakness. - Constitutional Vitals: Temp Pulse Resp BP Pulse Ox 98.0 F 77 18 87/53 100 04/06/19 07:42 04/06/19 07:42 04/06/19 07:42 04/06/19 07:42 04/06/19 07:55 Plan Activity: no restrictions Weight Bearing Status: Full Weight Bearing Diet: regular Follow up with: OSCAR RIOS MD [Primary Care Provider] - 7 Days BREANA MOORE DO [Staff Physician] - 04/08/19 Prescriptions: Sodium Bicarbonate 650 mg PO BID #60 tablet Allopurinol [Zyloprim] 100 mg PO QDAY #30 tablet
[2019-04-06 13:54] VITALS: BP 113/71
== END 2019-04-06 14:19 | disposition home or self-care (01) | DRG 682 ==
LOC: ED 18:01 → 2B-ACE 20:41
PROVIDERS: ADMIT Internal Medicine; ATTEND Internal Medicine
DX: N17.0 Acute kidney failure with tubular necrosis (principal); E43 Unspecified severe protein-calorie malnutrition; E87.2 Acidosis; C91.10 Chronic lymphocytic leukemia of B-cell type not having achieved remission; E22.2 Syndrome of inappropriate secretion of antidiuretic hormone; M19.90 Unspecified osteoarthritis, unspecified site; J45.909 Unspecified asthma, uncomplicated; I10 Essential (primary) hypertension; E83.52 Hypercalcemia; E79.0 Hyperuricemia without signs of inflammatory arthritis and tophaceous disease; E89.0 Postprocedural hypothyroidism; G89.29 Other chronic pain; M54.9 Dorsalgia, unspecified; M54.2 Cervicalgia; E88.3 Tumor lysis syndrome; Z90.49 Acquired absence of other specified parts of digestive tract; Z90.710 Acquired absence of both cervix and uterus; Z68.24 Body mass index [BMI] 24.0-24.9, adult; Z82.49 Family history of ischemic heart disease and other diseases of the circulatory system; Z79.899 Other long term (current) drug therapy; Z79.82 Long term (current) use of aspirin
CPT/HCPCS: 36415; 70450; 71046; 71250; 76770; 80048; 80053; 81001; 82570; 83615; 83735; 84100; 84300; 84484; 84550; 85007; 85025; 85027; 88184; 88185; 93005; 93010; 96365; 96375; G0378; J2405; J7030; J7040

== ENCOUNTER 2019-05-10 19:02 | Emergency (ER) | payer MEDICARE ==
--- NOTE | 2019-05-10 19:18 | Emergency Department Report ---
Blank Doc - Documentation Documentation: This is a 69-year-old female that presents with chest pain and SOB. Also has productive cough with generalized weakness. This initial assessment/diagnostic orders/clinical plan/treatment(s) is/are subject to change based on patient's health status, clinical progression and re- assessment by fellow clinical providers in the ED. Further treatment and workup at subsequent clinical providers discretion. Patient/guardians urged not to elope from the ED as their condition may be serious if not clinically assessed and managed. Initial orders include: 1- Patient sent to MAIN ED for further evaluation and treatment 2- labs 3- EKG 4- CXR
[2019-05-10 19:42] LABS: Hematocrit 38.4 % (30.3-42.9); Hemoglobin 12.2 gm/dl (10.1-14.3); Mean Corpuscular HGB Conc 32 % (30-34); Mean Corpuscular Volume 99 fl (79-97); Platelet Count 279 K/mm3 (140-440); Red Blood Count 3.88 M/mm3 (3.65-5.03); Red Cell Distribution Width 15.8 % (13.2-15.2)
[2019-05-10 19:50] LABS: INR 1.06 (0.87-1.13)
[2019-05-10 19:51] LABS: Partial Thromboplastin Time 24.7 Sec. (24.2-36.6)
[2019-05-10 20:00] LABS: Calcium 11.3 mg/dL (8.4-10.2); Hemolysis Index 11
[2019-05-10 20:07] LABS: BUN/Creatinine Ratio 26; Blood Urea Nitrogen 117 mg/dL (7-17)
--- NOTE | 2019-05-10 20:52 | XRay Report ---
CHEST 1 VIEW 05/10/2019 8:05 PM INDICATION / CLINICAL INFORMATION: Chest Pain. COMPARISON: 04/02/19 FINDINGS: SUPPORT DEVICES: None. HEART / MEDIASTINUM: No significant abnormality. LUNGS / PLEURA: No significant pulmonary or pleural abnormality. No pneumothorax. ADDITIONAL FINDINGS: No significant additional findings. IMPRESSION: 1. No acute findings. No change. Signer Name: Linda Chavez MD Signed: 05/10/2019 8:48 PM Workstation Name: [id number]
--- NOTE | 2019-05-10 23:55 | Emergency Department Report ---
ED Chest Pain HPI - General Chief Complaint: Chest Pain Stated Complaint: YUE/CHEST PAIN/FATIGUE Time Seen by Provider: 05/10/19 19:16 Source: patient Mode of arrival: Ambulatory Limitations: No Limitations - History of Present Illness Initial Comments: This is a 69-year-old female that presents with chest pain and SOB. Also has productive cough with generalized weakness. Symptoms started yesterday and has progressively worsens today. no fever, chills or night sweats. H/o Leukemia but not on any meds. rates symptoms as severe in severity, worse with ambulation. Also c/o mild chest pain, mid chest, pressure like, /10, without radiation. - Related Data Home Medications Medication Instructions Recorded Confirmed Last Taken Albuterol Sulfate [Ventolin HFA] 2 puff IH Q4H PRN 11/04/15 04/03/19 04/02/19 09:00 2puffs Fluticasone [Flonase] 1 spray NS QDAY 11/04/15 04/03/19 04/02/19 10:00 1 spray Fexofenadine/Pseudoephedrine 1 each PO QDAY 11/09/15 04/03/19 03/31/19 09:00 [Joyce-D 12 Hour Tablet] 1 amLODIPine [Norvasc] 5 mg PO DAILY 03/04/17 04/03/19 03/31/19 09:00 5mg Previous Rx's Medication Instructions Recorded Last Taken Type Aspirin [Aspirin BABY CHEW TAB] 81 mg PO QDAY tab.chew 11/09/15 03/31/19 09:00 Rx 81mg Acetaminophen/Codeine [Tylenol 1 tab PO Q6H PRN #6 tab 04/16/17 03/21/19 09:00 Rx /Codeine # 3 tab] 1 tab traMADol [Ultram 50 MG tab] 50 mg PO Q6HR PRN #12 tablet 04/16/17 03/31/19 18:00 Rx 50mg Allopurinol [Zyloprim] 100 mg PO QDAY #30 tablet 04/06/19 Unknown Rx Sodium Bicarbonate 650 mg PO BID #60 tablet 04/06/19 Unknown Rx Allergies Allergy/AdvReac Type Severity Reaction Status Date / Time No Known Allergies Allergy Verified 11/09/15 01:46 Heart Score - HEART Score History: Slightly suspicious EKG: Non-specific Age: > 65 Risk factors: > 3 risk factors or hx of atherosclerotic disease Troponin: < normal limit HEART Score: 5 ED Review of Systems ROS: Stated complaint: YUE/CHEST PAIN/FATIGUE Other details as noted in HPI Comment: All other systems reviewed and negative Constitutional: denies: chills Eyes: denies: eye pain ENT: denies: ear pain, throat pain Respiratory: SOB with exertion, SOB at rest. denies: cough, orthopnea Cardiovascular: chest pain, dyspnea on exertion Gastrointestinal: denies: abdominal pain, nausea, vomiting ED Past Medical Hx - Past Medical History Previous Medical History?: Yes Hx Hypertension: Yes Hx Heart Attack/AMI: No Hx Arthritis: Yes Hx Asthma: Yes Additional medical history: SINUS. Chronic back/neck pain - Surgical History Past Surgical History?: Yes Hx Pacemaker: No Additional Surgical History: HYSTERERCTOMY, RIGHT KNEE SURGERY, GALL STONE REMOVED, FIRBROIDS REMOVED. - Social History Smoking Status: Never Smoker Substance Use Type: None - Medications Home Medications: Home Medications Medication Instructions Recorded Confirmed Last Taken Type Albuterol Sulfate [Ventolin HFA] 2 puff IH Q4H PRN 11/04/15 04/03/19 04/02/19 09:00 History 2puffs Fluticasone [Flonase] 1 spray NS QDAY 11/04/15 04/03/19 04/02/19 10:00 History 1 spray Aspirin [Aspirin BABY CHEW TAB] 81 mg PO QDAY tab.chew 11/09/15 04/03/19 03/31/19 09:00 Rx 81mg Fexofenadine/Pseudoephedrine 1 each PO QDAY 11/09/15 04/03/19 03/31/19 09:00 History [Joyce-D 12 Hour Tablet] 1 amLODIPine [Norvasc] 5 mg PO DAILY 03/04/17 04/03/19 03/31/19 09:00 History 5mg Acetaminophen/Codeine [Tylenol 1 tab PO Q6H PRN #6 tab 04/16/17 04/03/19 03/21/19 09:00 Rx /Codeine # 3 tab] 1 tab traMADol [Ultram 50 MG tab] 50 mg PO Q6HR PRN #12 tablet 04/16/17 04/03/19 03/31/19 18:00 Rx 50mg Allopurinol [Zyloprim] 100 mg PO QDAY #30 tablet 04/06/19 Unknown Rx Sodium Bicarbonate 650 mg PO BID #60 tablet 04/06/19 Unknown Rx ED Physical Exam - General Limitations: No Limitations General appearance: alert, in no apparent distress - Head Head exam: Present: atraumatic, normocephalic - Eye Eye exam: Present: normal appearance, PERRL, EOMI Pupils: Present: normal accommodation - ENT ENT exam: Present: normal exam, normal orophraynx - Neck Neck exam: Present: normal inspection - Respiratory Respiratory exam: Present: normal lung sounds bilaterally - Cardiovascular Cardiovascular Exam: Present: regular rate, normal rhythm - GI/Abdominal GI/Abdominal exam: Present: soft, normal bowel sounds - Extremities Exam Extremities exam: Present: normal inspection - Back Exam Back exam: Present: normal inspection - Neurological Exam Neurological exam: Present: alert, oriented X3, CN II-XII intact - Skin Skin exam: Present: warm ED Course Vital Signs 05/10/19 05/10/19 05/10/19 19:12 20:09 20:10 Temperature 97.3 F L Pulse Rate 111 H 106 H Respiratory 18 16 16 Rate Blood Pressure 98/69 Blood Pressure 110/78 [Left] O2 Sat by Pulse 98 98 99 Oximetry 05/10/19 05/10/19 05/11/19 22:00 23:38 03:03 Temperature Pulse Rate 101 H 101 H 103 H Respiratory 18 16 16 Rate Blood Pressure Blood Pressure 112/71 127/82 113/77 [Left] O2 Sat by Pulse 98 98 98 Oximetry BANDAR score - Bandar Score Age > 65: (1) Yes Aspirin use within the Past 7 Days: (1) Yes 3 or more CAD Risk Factors: (0) No 2 or more Angina events in past 24 hrs: (1) Yes Known CAD with more than 50% Stenosis: (0) No Elevated Cardiac Markers: (0) No ST Deviation Greater than 0.5mm: (0) No BANDAR Score: 3 ED Medical Decision Making - Lab Data Result diagrams: 05/10/19 19:25 05/10/19 19:25 - Medical Decision Making wbc 100.8, spoke with hospitalist who recommended to transfer patient to a higher level of care facility. spoke with Dr. Atwood, who accepted patient at [facility]. Critical care attestation.: If time is entered above; I have spent that time in minutes in the direct care of this critically ill patient, excluding procedure time. ED Disposition Clinical Impression: CLL (chronic lymphocytic leukemia), SOB (shortness of breath) Chest pain Qualifiers: Chest pain type: other chest pain Qualified Code(s): R07.89 - Other chest pain Disposition: DC/TX-70 ANOTHER TYPE HLTHCARE Is pt being admited?: No Does the pt Need Aspirin: No Condition: Stable Instructions: Chest Pain (ED) Referrals: OSCAR RIOS MD [Primary Care Provider] - 3-5 Days
[2019-05-10 23:59] LABS: Basophils % (Manual) 0 % (0.0-1.8); Eosinophils % (Manual) 0.5 % (0.0-4.3); Monocytes % (Manual) 3.5 % (0.0-7.3); Total Cells Counted 200
[2019-05-11] LABS: Anisocytosis 1+; Platelet Estimate Consistent w Auto; Poikilocytosis 1+
[2019-05-11] MEDS ORDERED: NACL 0.9% 1000 ML 1,000 ML IV ONE (00:08)
--- NOTE | 2019-05-11 02:16 | Nuclear Medicine Report ---
NM perfusion only lung scan INDICATION / CLINICAL INFORMATION: Shortness of breath. TECHNIQUE: Dose / Agent / Route: 4.5 mCi technetium 99m-MAA intravenously. COMPARISON: Chest radiograph performed yesterday. FINDINGS: There is a single moderate sized wedge-shaped perfusion defect in the left upper lobe posteriorly on the posterior oblique image. No other perfusion abnormality is seen. The accompanying chest radiograp h demonstrates no parenchymal opacities. IMPRESSION: Single moderate perfusion defect in the left upper lobe. The study is indeterminate for a cute PTE. Signer Name: Alexis Hui MD Signed: 05/11/2019 2:11 AM Workstation Name: [id number]
[2019-05-11 03:05] VITALS: BP 113/77
== END 2019-05-11 03:30 | disposition other institution (70) ==
LOC: ED 19:02
DX: C91.10 Chronic lymphocytic leukemia of B-cell type not having achieved remission (principal); R07.89 Other chest pain; R06.02 Shortness of breath; I11.0 Hypertensive heart disease with heart failure; J45.909 Unspecified asthma, uncomplicated; M19.90 Unspecified osteoarthritis, unspecified site; M54.2 Cervicalgia; M54.9 Dorsalgia, unspecified; G89.29 Other chronic pain; Z79.82 Long term (current) use of aspirin; Z79.899 Other long term (current) drug therapy; Z90.710 Acquired absence of both cervix and uterus; Z98.890 Other specified postprocedural states
CPT/HCPCS: 36415; 71045; 78580; 80048; 83880; 84100; 84484; 84550; 85007; 85025; 85610; 85730; 93005; 93010; 99285; A9540; J7030; 96360; 96361